=== PATIENT | male | born 1945 | race Caucasian/White ===

== ENCOUNTER 2016-03-11 14:59 | Inpatient (IN) | payer OTHER, MEDICARE ==
--- NOTE | 2016-03-11 15:15 | ER Document Report ---
ED Medical Screen (RME) - General Stated Complaint: RESPIRATORY DISTRESS Notes: 71 yo male c/o shortness of breath. brought to ED via EMS from [place] [facility]. feeling short of breath x 2 weeks. + sinus congestion. + fever. + cough. O2 Sat at clinic 88% hx/o COPD, HTN. denies chest pain - Related Data Allergies/Adverse Reactions: Sulfa (Sulfonamide Antibiotics) Allergy (Verified 12/12/12 22:44) Past Medical History - Past Medical History Cardiac Medical History: Reports: Hx Hypercholesterolemia, Hx Hypertension Pulmonary Medical History: Reports: Hx COPD Past Surgical History: Reports: Hx Cardiac Catheterization - stent placement - Immunizations Hx Diphtheria, Pertussis, Tetanus Vaccination: No
[2016-03-11 17:04] LABS: ABSOLUTE LYMPHOCYTES (AUTO) 0.6 10^3/uL (0.5-4.7); ABSOLUTE MONOCYTES (AUTO) 1.1 10^3/uL (0.1-1.4); ABSOLUTE NEUT (AUTO) 7.2 10^3/uL (1.7-8.2); BASOPHILS % (AUTO) 0.4 % (0-2); EOSINOPHILS % (AUTO) 0.4 % (0-6); HEMATOCRIT 34.9 % (37.9-51.0); HEMOGLOBIN 11.7 g/dL (13.5-17.0); HGB HCT DIFFERENCE 0.2; LYMPHOCYTES % (AUTO) 7.1 % (13-45); MEAN CORPUSCULAR HEMOGLOBIN 30.1 pg (27.0-33.4); MEAN CORPUSCULAR HGB CONC 33.6 g/dL (32.0-36.0); MEAN CORPUSCULAR VOLUME 89 fl (80-97); MONOCYTES % (AUTO) 12.4 % (3-13); RED CELL DISTRIBUTION WIDTH 13.9 % (11.5-14.0); SEGMENTED NEUTROPHILS % (AUTO) 79.7 % (42-78)
[2016-03-11 17:29] LABS: ALANINE AMINOTRANSFERASE 42 U/L (21-72); ALBUMIN 3.5 g/dL (3.5-5.0); ALKALINE PHOSPHATASE 75 U/L (38-126); ANION GAP 10 (5-19); ASPARTATE AMINO TRANSFERASE 34 U/L (17-59); BILIRUBIN,TOTAL 0.9 mg/dL (0.2-1.3); BLOOD UREA NITROGEN 18 mg/dL (7-20); CALCIUM 9.1 mg/dL (8.4-10.2); CARBON DIOXIDE 27 mmol/L (22-30); CHLORIDE 99 mmol/L (98-107); CREATININE RESULT 1.03 mg/dL (0.52-1.25); GLUCOSE 114 mg/dL (75-110); SODIUM 136.4 mmol/L (137-145); TOTAL PROTEIN 6.9 g/dL (6.3-8.2)
[2016-03-11] MEDS ORDERED: CEFTRIAXONE 1 GM/D5W RTU 50 ML IV ONE (18:36)
[2016-03-11] MEDS ORDERED: AZITHROMYCIN INJ 500 MG VIAL IV ONE (18:36)
[2016-03-11] MEDS ORDERED: METHYLPREDNISOLONE INJ 125 MG/2 ML SDV IV ONE (18:37)
[2016-03-11] MEDS ORDERED: IPRATROPIUM/ALBUTEROL 0.5-2.5 MG/3 ML AMPUL NEB ONE ×2 (18:37→21:00)
--- NOTE | 2016-03-11 18:42 | ER Document Report ---
ED Respiratory Problem - General Chief Complaint: Breathing Difficulty Stated Complaint: RESPIRATORY DISTRESS Time seen by provider: 18:37 Mode of Arrival: Medic Information source: Patient Notes: This is a 71-year-old man with a history of COPD who is brought in by EMS because of shortness of breath and hypoxia. Patient was being evaluated at the [facility] for shortness of breath and cough, he was noted to have O2 sat of 88% on room air and his skin looked "ashen". Patient states he's been having significant dyspnea on exertion in the setting of cough and chills for the past 3 days. TRAVEL OUTSIDE OF THE [place] IN LAST 30 DAYS: No - HPI Patient complains to provider of: COPD Onset: Last week Duration: Continuous Initiating Event: No: Allergy, Aspiration/Choking, Exertion, Exposure to chemicals, Exposure to dust, Exposure to fumes, Exposure to mold, Exposure to smoke, Out of meds, Sports/exercise, URI, Other Quality of pain: No pain Severity: None Pain Level: Denies Context: Hx COPD Short of Breath: Moderate Chest pain/discomfort: denies: Center, Constant, Heaviness, Intermittent, Left, Pain, Radiates to arm, Radiates to back, Radiates to jaw, Right, Tightness, Worse with deep breaths Cough: Productive Sputum amount: denies: None, Scant, Small, Moderate, Large, Copious Sputum color: denies: Brown, Clear, Creamy, [place], Green, [place] tinged, Red (blood ), Red Specks, Rust, Small Clots, Ram, White, Yellow Sputum consistency: denies: Frothy, Mucoid, Mucoid Plug, Tenacious, Thick, Thin At home treatment: denies: Bronchodilators, CPAP, Diuretics, Inhaled steroids, Oral steroids, Oxygen, Singulair, Theophylline EMS treatments: No: Bronchodilators, CPAP, Diuretics, Epinephrine, Nitrates, Oxygen, Solumedrol Associated symptoms: Chills, Short of breath Similar symptoms previously: Yes Recently seen / treated by doctor: Yes - Related Data Allergies/Adverse Reactions: Sulfa (Sulfonamide Antibiotics) Allergy (Verified 03/11/16 15:13) Past Medical History - General Information source: Patient - Social History Smoking Status: Former Smoker Cigarette use (# per day): No Chew tobacco use (# tins/day): No Frequency of alcohol use: None Drug Abuse: None Lives with: Spouse/Significant other Family History: Reviewed & Not Pertinent Patient has suicidal ideation: No Patient has homicidal ideation: No - Past Medical History Cardiac Medical History: Reports: Hx Hypercholesterolemia, Hx Hypertension Pulmonary Medical History: Reports: Hx COPD Renal/ Medical History: Denies: Hx Peritoneal Dialysis Past Surgical History: Reports: Hx Cardiac Catheterization - stent placement - Immunizations Hx Diphtheria, Pertussis, Tetanus Vaccination: No Review of Systems - Review of Systems Constitutional: Chills. denies: Fever EENT: See HPI Cardiovascular: No symptoms reported Respiratory: See HPI Gastrointestinal: No symptoms reported Genitourinary: No symptoms reported Male Genitourinary: No symptoms reported Musculoskeletal: No symptoms reported Skin: No symptoms reported Hematologic/Lymphatic: No symptoms reported Neurological/Psychological: No symptoms reported Physical Exam - Vital signs Vitals: Resp Pulse Ox 22 H 94 03/11/16 17:07 03/11/16 17:07 Notes: Physical exam: GENERAL: Of [id number] man, alert and oriented 3, appears short of breath HEAD: Atraumatic, normocephalic. EYES: Pupils equal round and reactive to light, extraocular movements intact, sclera anicteric, conjunctiva are normal. ENT: TMs normal, nares patent, oropharynx clear without exudates. Moist mucous membranes. NECK: Normal range of motion, supple without lymphadenopathy or JVD. LUNGS: A few's wheezing bilaterally HEART: Regular rate and rhythm without murmurs, rubs or gallops. ABDOMEN: Soft, nontender, normoactive bowel sounds. No guarding, no rebound. No masses appreciated. EXTREMITIES: Normal range of motion, no pitting or edema. No clubbing or cyanosis. NEUROLOGICAL: Cranial nerves II through XII grossly intact. Normal speech, normal gait. PSYCH: Normal mood, normal affect. SKIN: Warm, Dry, normal turgor, no rashes or lesions noted. Course - Re-evaluation Re-evalutation: 03/11/16 20:02 Note: This is a 71-year-old man with COPD who presents to the emergency room via EMS with progressively worsening shortness of breath. Patient was noted to be hypoxic in the physician's office. Patient does desaturate when off the oxygen (he is not on any supplemental oxygen at home). Chest x-ray is suggestive of pneumonia. Patient was treated with IV steroids, IV antibiotics, nebulizers. 03/11/16 20:03 - Vital Signs Vital signs: Temp Pulse Resp BP Pulse Ox 21 H 162/92 H 98 03/11/16 19:09 03/11/16 19:09 03/11/16 19:09 - Laboratory Result Diagrams: 03/11/16 16:46 03/11/16 16:46 Laboratory results interpreted by me: 03/11/16 03/11/16 16:46 16:46 RBC 3.90 L Hgb 11.7 L Hct 34.9 L Seg Neutrophils % 79.7 H Lymphocytes % 7.1 L Sodium 136.4 L Glucose 114 H - Diagnostic Test Radiology reviewed: Image reviewed, Reports reviewed - COPD with superimposed pneumonia - EKG Interpretation by Me Rate: Normal Rhythm: NSR - EKG shows normal sinus rhythm with a ventricular rate of 85, Q waves be to V3 which are old, no acute ST-T wave changes. No significant changes from previous EKG Discharge - Discharge Clinical Impression: COPD exacerbation, pneumonia Condition: Stable Disposition: ADMITTED INPATIENT Admitting Provider: Hospitalist - Dr. Perez Unit Admitted: Telemetry Referrals: [Primary Care Provider] - Follow up as needed
[2016-03-11] MEDS ORDERED: IPRATROPIUM/ALBUTEROL 0.5-2.5 MG/3 ML AMPUL NEB PRN (20:14)
[2016-03-11] MEDS ORDERED: GUAIFENESIN SYRP 200 MG/10 ML UDC PO PRN (20:14)
[2016-03-11] MEDS ORDERED: NITROGLYCERIN 0.4 MG/TAB 25 TAB/BOTTLE SL PRN (20:17)
[2016-03-11] MEDS ORDERED: OXYCODONE HCL IR 5 MG TABLET PO PRN (20:17)
[2016-03-11] MEDS ORDERED: LACTULOSE SYRUP 20 GM/30 ML UDCUP PO ONE (21:30)
[2016-03-11] MEDS ORDERED: MINERAL OIL ENEMA 133 ML PR PRN (21:56)
[2016-03-11] MEDS ORDERED: DOXAZOSIN MESYLATE 4 MG TABLET PO SCH (22:00)
[2016-03-11] MEDS ORDERED: (PENDING PHARMACY ID) (Terazosin Hcl [Hytrin] 4 MG) PO SCH (22:00)
[2016-03-11] MEDS ORDERED: MORPHINE SULFATE SR 15 MG TABLET PO SCH (22:00)
[2016-03-11] MEDS ORDERED: FLUTICASONE NASAL SPRAY 50 MCG/SPRY 120 SPRAY/16 GM NASL SCH (22:00)
[2016-03-11] MEDS ORDERED: (PENDING PHARMACY ID) (Rosuvastatin Calcium [Crestor 20 Mg Tablet] 20 MG) PO SCH (22:00)
[2016-03-11] MEDS: HEPARIN SOD (PORCINE) 5,000 UNIT/ML 1 ML SYRINGE SUBCUT SCH (22:44)
[2016-03-11] MEDS: GUAIFENESIN 600 MG TABLET.SA PO SCH (22:44)
[2016-03-11] MEDS: NORMAL SALINE 1000 ML 1,000 ML IV SCH (22:46)
[2016-03-11] MEDS: ATORVASTATIN CALCIUM 80 MG TABLET PO SCH (22:46)
--- NOTE | 2016-03-11 23:19 | PDOC H&P ---
History of Present Illness Admission Date/PCP: 03/11/16 20:14 Papiya Ray Patient complains of: Shortness of breath and cough History of Present Illness: JADEN PAIZ is a 71 year old male with a past medical history of coronary artery disease, COPD and chronic pain with opiate dependence who had been in his usual state of health until approximately 2 weeks ago having exceptional facial sinus congestion and postnasal drip and gradually worsening shortness of breath with nonproductive cough prompting him to seek evaluation with the [facility] where he is found to have pulse oximetry of 88% on room air and is referred to the emergency room for evaluation. A chest x-ray reveals right mid and lower lobe infiltrate. He denies chest pain though admits nausea without vomiting and abdominal distention with out bowel movements and greater than 5 days. He is given albuterol Atrovent nebulizer and empiric antibiotics referred to the hospitalist for admission. Past Medical History Cardiac Medical History: Reports: Coronary Artery Disease - stenting of the LAD rhythm 2 years ago, f/u cardiac stress testing neg., Hyperlipidema, Hypertension Pulmonary Medical History: Reports: Chronic Obstructive Pulmonary Disease (COPD) GI Medical History: Reports: Other - Chronic constipation Musculoskeltal Medical History: Reports: Other - Chronic low back pain Past Surgical History Past Surgical History: Reports: Cardiac Catheterization - stent placement Social History Information Source: Patient Lives with: Spouse/Significant other Smoking Status: Former Smoker Frequency of Alcohol Use: Rare Hx Recreational Drug Use: No Drugs: None - Advance Directive Resuscitation Status: Full Code Family History Family History: COPD Parental Family History Reviewed: Yes Children Family History Reviewed: Yes Sibling(s) Family History Reviewed.: Yes Medication/Allergy Home Medications: Albuterol Sulfate [Proair HFA] 2 puff IH Q6HP PRN 03/11/16 Budesonide/Formoterol Fumarate [Symbicort HFA 80-4.5 mcg Inhaler 6.9 gm] 2 puff IH Q12 03/11/16 Cetirizine HCl [Zyrtec 10 mg Tablet] 10 mg PO DAILY 03/11/16 Clopidogrel Bisulfate [Plavix 75 mg Tablet] 75 mg PO DAILY 03/11/16 Finasteride [Proscar 5 mg Tablet] 5 mg PO QHS 03/11/16 Fluticasone Propionate [Flonase Nasal [place] 50 Mcg/[place] 16 gm] 2 sprays NASL DAILY 03/11/16 Pantoprazole Sodium [Protonix] 40 mg PO DAILY 03/11/16 Polyethylene Glycol 3350 [Miralax] 1 cfu PO DAILY 03/11/16 Terazosin HCl [Hytrin] 4 mg PO QHS 03/11/16 Allergies/Adverse Reactions: Sulfa (Sulfonamide Antibiotics) Allergy (Verified 03/11/16 15:13) Review of Systems Constitutional: PRESENT: anorexia, chills, fatigue Eyes: ABSENT: visual disturbances Ears: ABSENT: hearing changes Cardiovascular: PRESENT: dyspnea on exertion. ABSENT: chest pain, edema, orthropnea, palpitations Respiratory: PRESENT: cough, dyspnea. ABSENT: sputum Gastrointestinal: PRESENT: bloating, constipation, nausea. ABSENT: coffee ground emesis, diarrhea, vomiting Genitourinary: ABSENT: dysuria, hematuria Musculoskeletal: PRESENT: back pain Integumentary: ABSENT: rash, wounds Neurological: ABSENT: abnormal gait, abnormal speech, confusion, dizziness, focal weakness, syncope Psychiatric: ABSENT: anxiety, depression, homidical ideation, suicidal ideation Endocrine: ABSENT: cold intolerance, heat intolerance, polydipsia, polyuria Hematologic/Lymphatic: ABSENT: easy bleeding, easy bruising Physical Exam Vital Signs: Temp Pulse Resp BP Pulse Ox 97.2 F 84 19 176/78 H 97 03/11/16 22:00 03/11/16 22:00 03/11/16 22:00 03/11/16 22:00 03/11/16 22:00 General appearance: PRESENT: cooperative, mild distress, well-developed, well- nourished Head exam: PRESENT: atraumatic, normocephalic Eye exam: PRESENT: conjunctiva pink, EOMI, PERRLA. ABSENT: scleral icterus Ear exam: PRESENT: normal external ear exam Mouth exam: PRESENT: moist, tongue midline Neck exam: ABSENT: carotid bruit, JVD, lymphadenopathy, thyromegaly Respiratory exam: PRESENT: accessory muscle use, prolonged expiratory phas, rales, rhonchi, symmetrical, tachypnea. ABSENT: chest wall tenderness, clear to auscultation nicko, stridor, wheezes Cardiovascular exam: PRESENT: RRR. ABSENT: diastolic murmur, rubs, systolic murmur Pulses: PRESENT: normal dorsalis pedis pul Vascular exam: PRESENT: normal capillary refill GI/Abdominal exam: PRESENT: distended, hypoactive bowel sounds, soft. ABSENT: guarding, mass, Brito's sign, normal bowel sounds, organolmegaly, rebound, tenderness Rectal exam: PRESENT: deferred Extremities exam: PRESENT: full ROM. ABSENT: calf tenderness, clubbing, pedal edema Neurological exam: PRESENT: alert, awake, oriented to person, oriented to place , oriented to time, oriented to situation, CN II-XII grossly intact. ABSENT: motor sensory deficit Psychiatric exam: PRESENT: appropriate affect, normal mood. ABSENT: homicidal ideation, suicidal ideation Skin exam: PRESENT: dry, intact, warm. ABSENT: cyanosis, rash Results Impressions: Chest X-Ray 03/11/16 15:15 IMPRESSION: Suspect either asymmetric edema or early or developing pneumonia in the right mid and lower lung, superimposed on obstructive lung disease and old posttraumatic change left hemithorax Assessment & Plan - Diagnosis (1) COPD with exacerbation Is this a current diagnosis for this admission?: YesPlan: Albuterol and Atrovent nebulizer, flutter valve and will consider steroids (2) Pneumonia Is this a current diagnosis for this admission?: YesPlan: Likely aspiration from bacterial sinusitis, IV Levaquin incentive spirometry supplemental oxygen blood and sputum culture following up CBC (3) Maxillary sinusitis, acute Is this a current diagnosis for this admission?: YesPlan: Please see #2 and Flovent (4) Constipation Is this a current diagnosis for this admission?: YesPlan: Secondary to narcotic dependence he is placed on lactulose and mineral oil enema when necessary - Time Time Spent: 50 to 70 Minutes
[2016-03-12] MEDS ORDERED: OXYCODONE HCL IR 5 MG TABLET PO PRN (00:19)
[2016-03-12] MEDS ORDERED: MORPHINE SULFATE IR 15 MG TABLET PO ONE (00:30)
[2016-03-12] MEDS: IPRATROPIUM/ALBUTEROL 0.5-2.5 MG/3 ML AMPUL NEB SCH ×4 (01:24→19:48)
[2016-03-12] MEDS: NORMAL SALINE 1000 ML 1,000 ML IV SCH (04:41)
[2016-03-12 05:05] LABS: ABSOLUTE LYMPHOCYTES (AUTO) 0.4 10^3/uL (0.5-4.7); ABSOLUTE MONOCYTES (AUTO) 0.1 10^3/uL (0.1-1.4); ABSOLUTE NEUT (AUTO) 5.3 10^3/uL (1.7-8.2); BASOPHILS % (AUTO) 0.2 % (0-2); HEMATOCRIT 31.6 % (37.9-51.0); HEMOGLOBIN 10.8 g/dL (13.5-17.0); HGB HCT DIFFERENCE 0.8; LYMPHOCYTES % (AUTO) 6.5 % (13-45); MEAN CORPUSCULAR HEMOGLOBIN 30.3 pg (27.0-33.4); MEAN CORPUSCULAR HGB CONC 34.2 g/dL (32.0-36.0); MEAN CORPUSCULAR VOLUME 89 fl (80-97); RED BLOOD COUNT 3.57 10^6/uL (4.35-5.55); RED CELL DISTRIBUTION WIDTH 14.1 % (11.5-14.0); SEGMENTED NEUTROPHILS % (AUTO) 91.3 % (42-78); WHITE BLOOD COUNT 5.8 10^3/uL (4.0-10.5)
[2016-03-12 05:18] LABS: ANION GAP 13 (5-19); BLOOD UREA NITROGEN 18 mg/dL (7-20); CARBON DIOXIDE 22 mmol/L (22-30); CHLORIDE 104 mmol/L (98-107); CREATININE RESULT 0.84 mg/dL (0.52-1.25); GLUCOSE 173 mg/dL (75-110); POTASSIUM 4.5 mmol/L (3.6-5.0); SODIUM 139.1 mmol/L (137-145)
[2016-03-12] MEDS: HEPARIN SOD (PORCINE) 5,000 UNIT/ML 1 ML SYRINGE SUBCUT SCH ×3 (05:19→21:20)
[2016-03-12] MEDS ORDERED: NA PHOS,M-B/NA PHOS,DI-BA (ADULT) 133 ML ENEMA PR ONE (05:43)
[2016-03-12] MEDS ORDERED: MINERAL OIL ENEMA 133 ML PR ONE (05:43)
[2016-03-12] MEDS ORDERED: SERTRALINE HCL 50 MG TABLET PO SCH (10:00)
[2016-03-12] MEDS ORDERED: MORPHINE SULFATE IR 15 MG TABLET PO SCH ×2 (10:00→18:00)
[2016-03-12] MEDS: GUAIFENESIN 600 MG TABLET.SA PO SCH ×2 (10:56→21:22)
[2016-03-12] MEDS: MORPHINE SULFATE SR 15 MG TABLET PO SCH ×2 (10:56→21:23)
[2016-03-12] MEDS: LEVOFLOXACIN 750 MG/D5W RTU 150 ML IV SCH (10:57)
[2016-03-12] MEDS: LANSOPRAZOLE 30 MG TAB.RAP.DR PO SCH (10:57)
--- NOTE | 2016-03-12 11:22 | EKG REPORT ---
SEVERITY:- ABNORMAL ECG - PACEMAKER SPIKES OR ARTIFACTS SINUS RHYTHM BORDERLINE R WAVE PROGRESSION, ANTERIOR LEADS : Confirmed by: Stephanie Rodriguez 12-Mar-2016 11:22:00
[2016-03-12] MEDS ORDERED: BUDESONIDE/FORMOTEROL 80-4.5 MCG 60 PUFF/6.9 GM MDI IH ONE (12:00)
[2016-03-12] MEDS ORDERED: FLUTICASONE NASAL SPRAY 50 MCG/SPRY 120 SPRAY/16 GM NASL SCH (12:00)
--- NOTE | 2016-03-12 13:09 | PDOC PROGRESS REPORT ---
Subjective Progress Note for:: 03/12/16 Subjective:: Patient seen on morning rounds. He is sitting on the side of the bed. His is at bedside. He states he is hungry. His cough is beginning to loosen up. He denies dyspnea, chest pain or dizziness. He denies any abdominal pain ,nausea or diarrhea. He is still constipated. He states his bowels moved a very little bit after lactulose. He states both of his eyes this morning were matted shut and red. He states he has had a sinus infection for almost a week before it moved into his chest. He also has significant seasonal allergies. Rest of review are unremarkable. Physical Exam Vital Signs: Temp Pulse Resp BP Pulse Ox 97.4 F 83 20 162/81 H 95 03/12/16 11:57 03/12/16 11:57 03/12/16 11:57 03/12/16 11:57 03/12/16 11:57 Intake & Output 03/11/16 03/12/16 03/13/16 06:59 06:59 06:59 Intake Total 1907 Output Total 1125 Balance 782 Weight 78 kg General appearance: PRESENT: no acute distress, well-developed, well-nourished Head exam: PRESENT: atraumatic, normocephalic Eye exam: PRESENT: conjunctiva pink, EOMI, PERRLA. ABSENT: scleral icterus Ear exam: PRESENT: normal external ear exam Mouth exam: PRESENT: moist, tongue midline Neck exam: ABSENT: carotid bruit, JVD, lymphadenopathy, thyromegaly Respiratory exam: PRESENT: decreased breath sounds, rhonchi, symmetrical, unlabored. ABSENT: rales, wheezes Cardiovascular exam: PRESENT: RRR. ABSENT: diastolic murmur, rubs, systolic murmur Pulses: PRESENT: normal dorsalis pedis pul Vascular exam: PRESENT: normal capillary refill GI/Abdominal exam: PRESENT: firm, normal bowel sounds, soft. ABSENT: distended , guarding, mass, organolmegaly, rebound, tenderness Rectal exam: PRESENT: deferred Extremities exam: PRESENT: full ROM. ABSENT: calf tenderness, clubbing, pedal edema Neurological exam: PRESENT: alert, awake, oriented to person, oriented to place , oriented to time, oriented to situation, CN II-XII grossly intact. ABSENT: motor sensory deficit Psychiatric exam: PRESENT: appropriate affect, normal mood. ABSENT: homicidal ideation, suicidal ideation Skin exam: PRESENT: dry, intact, warm. ABSENT: cyanosis, rash Results Laboratory Results: 03/12/16 04:20 03/12/16 04:20 03/12/16 03/12/16 04:20 04:20 WBC 5.8 RBC 3.57 L Hgb 10.8 L Hct 31.6 L MCV 89 MCH 30.3 MCHC 34.2 RDW 14.1 H Plt Count 177 Seg Neutrophils % 91.3 H Lymphocytes % 6.5 L Monocytes % 2.0 L Eosinophils % 0.0 Basophils % 0.2 Absolute Neutrophils 5.3 Absolute Lymphocytes 0.4 L Absolute Monocytes 0.1 Absolute Eosinophils 0.0 Absolute Basophils 0.0 Sodium 139.1 Potassium 4.5 Chloride 104 Carbon Dioxide 22 Anion Gap 13 BUN 18 Creatinine 0.84 Est GFR ( Amer) > 60 Est GFR (Non-Af Amer) > 60 Glucose 173 H Calcium 9.0 Impressions: Chest X-Ray 03/11/16 15:15 IMPRESSION: Suspect either asymmetric edema or early or developing pneumonia in the right mid and lower lung, superimposed on obstructive lung disease and old posttraumatic change left hemithorax Assessment & Plan - Diagnosis (1) Pneumonia Qualifiers: Qualified Code(s): J18.1 - Lobar pneumonia, unspecified organism Is this a current diagnosis for this admission?: YesPlan: Continue current antibiotics, IV steroids and nebulizer treatment. Sputum culture pending (2) COPD with exacerbation Is this a current diagnosis for this admission?: YesPlan: Continue inhalers, nebulizer, and steroids (3) Maxillary sinusitis, acute Qualifiers: Qualified Code(s): J01.01 - Acute recurrent maxillary sinusitis Is this a current diagnosis for this admission?: YesPlan: Patient has recurrent sinusitis, also has seasonal allergies. Will add Singulair. Continue Flonase and Zyrtec. (4) Chronic pain requiring opiod analgesia Is this a current diagnosis for this admission?: YesPlan: Will continue patient's current home medications - Time Time Spent with patient: 25-34 minutes Critical Time spent with patient: 15-24 minutes Medications reviewed and adjusted accordingly: Yes Anticipated discharge: Home - Inpatient Certification Based on my medical assessment, after consideration of the patient's comorbidities, presenting symptoms, or acuity I expect that the services needed warrant INPATIENT care.: Yes I certify that my determination is in accordance with my understanding of Medicare's requirements for reasonable and necessary INPATIENT services [42 CFR 412.3e].: Yes
[2016-03-12] MEDS: METHYLPREDNISOLONE INJ 40 MG/1 ML SDV IV SCH ×2 (14:20→21:23)
[2016-03-12] MEDS ORDERED: LUBIPROSTONE 24 MCG CAPSULE PO ONE ×2 (15:45→16:30)
[2016-03-12] MEDS: CIPROFLOXACIN HCL 0.3% OPH SOLN 2.5 ML OU SCH ×2 (17:28→23:22)
[2016-03-12] MEDS: OXYCODONE HCL IR 5 MG TABLET PO PRN (19:53)
[2016-03-12] MEDS: BUDESONIDE/FORMOTEROL 80-4.5 MCG 60 PUFF/6.9 GM MDI IH SCH (21:20)
[2016-03-12] MEDS: LUBIPROSTONE 24 MCG CAPSULE PO SCH (21:24)
[2016-03-12] MEDS: ATORVASTATIN CALCIUM 80 MG TABLET PO SCH (21:26)
[2016-03-12] MEDS ORDERED: (PENDING PHARMACY ID) (Terazosin Hcl [Hytrin] 4 MG) PO SCH (22:00)
[2016-03-12] MEDS ORDERED: DOXAZOSIN MESYLATE 4 MG TABLET PO SCH (22:00)
[2016-03-12] MEDS ORDERED: MONTELUKAST SODIUM 10 MG TABLET PO SCH (22:00)
[2016-03-12] MEDS ORDERED: DIAZEPAM 5 MG TABLET PO SCH (22:00)
[2016-03-12] MEDS ORDERED: FINASTERIDE 5 MG TABLET PO SCH (22:00)
[2016-03-12] MEDS: ACETAMINOPHEN 325 MG TABLET PO PRN (23:21)
[2016-03-13] MEDS: OXYCODONE HCL IR 5 MG TABLET PO PRN (02:02)
[2016-03-13] MEDS: ACETAMINOPHEN 325 MG TABLET PO PRN (03:40)
[2016-03-13] MEDS: IPRATROPIUM/ALBUTEROL 0.5-2.5 MG/3 ML AMPUL NEB SCH ×2 (03:47→08:25)
[2016-03-13] MEDS: HEPARIN SOD (PORCINE) 5,000 UNIT/ML 1 ML SYRINGE SUBCUT SCH (06:19)
[2016-03-13] MEDS: METHYLPREDNISOLONE INJ 40 MG/1 ML SDV IV SCH (06:20)
[2016-03-13] MEDS: CIPROFLOXACIN HCL 0.3% OPH SOLN 2.5 ML OU SCH (06:20)
[2016-03-13 06:39] LABS: ABSOLUTE LYMPHOCYTES (AUTO) 0.6 10^3/uL (0.5-4.7); ABSOLUTE MONOCYTES (AUTO) 0.6 10^3/uL (0.1-1.4); ABSOLUTE NEUT (AUTO) 9.4 10^3/uL (1.7-8.2); BASOPHILS % (AUTO) 0.3 % (0-2); HEMATOCRIT 32.9 % (37.9-51.0); HEMOGLOBIN 11.1 g/dL (13.5-17.0); HGB HCT DIFFERENCE 0.4; LYMPHOCYTES % (AUTO) 5.6 % (13-45); MEAN CORPUSCULAR HEMOGLOBIN 30.2 pg (27.0-33.4); MEAN CORPUSCULAR HGB CONC 33.9 g/dL (32.0-36.0); MEAN CORPUSCULAR VOLUME 89 fl (80-97); MONOCYTES % (AUTO) 5.9 % (3-13); RED BLOOD COUNT 3.69 10^6/uL (4.35-5.55); RED CELL DISTRIBUTION WIDTH 13.9 % (11.5-14.0); SEGMENTED NEUTROPHILS % (AUTO) 88.2 % (42-78); WHITE BLOOD COUNT 10.7 10^3/uL (4.0-10.5)
[2016-03-13 06:59] LABS: ANION GAP 13 (5-19); BLOOD UREA NITROGEN 33 mg/dL (7-20); CALCIUM 9.6 mg/dL (8.4-10.2); CARBON DIOXIDE 25 mmol/L (22-30); CHLORIDE 104 mmol/L (98-107); CREATININE RESULT 1.01 mg/dL (0.52-1.25); GLUCOSE 132 mg/dL (75-110); POTASSIUM 4.6 mmol/L (3.6-5.0); SODIUM 142.2 mmol/L (137-145)
[2016-03-13] MEDS ORDERED: CETIRIZINE 10 MG TABLET PO SCH (10:00)
[2016-03-13] MEDS ORDERED: [UNRECOGNIZED DRUG - OTHER] PO SCH (10:00)
[2016-03-13] MEDS ORDERED: CLOPIDOGREL BISULFATE 75 MG TABLET PO SCH (10:00)
[2016-03-13] MEDS ORDERED: POLYETHYLENE GLYCOL 3350 POWDER 17 GM/1 PACKET PO SCH (10:00)
[2016-03-13] MEDS: BUDESONIDE/FORMOTEROL 80-4.5 MCG 60 PUFF/6.9 GM MDI IH SCH (10:14)
[2016-03-13] MEDS: LANSOPRAZOLE 30 MG TAB.RAP.DR PO SCH (10:14)
[2016-03-13] MEDS: GUAIFENESIN 600 MG TABLET.SA PO SCH (10:14)
[2016-03-13] MEDS: MORPHINE SULFATE SR 15 MG TABLET PO SCH (10:15)
[2016-03-13] MEDS: LEVOFLOXACIN 750 MG/D5W RTU 150 ML IV SCH (10:15)
[2016-03-13] MEDS: LUBIPROSTONE 24 MCG CAPSULE PO SCH (10:16)
[2016-03-13 13:07] VITALS: BP 150/62
--- NOTE | 2016-03-13 15:30 | PDOC DISCHARGE SUMMARY ---
General - Admit/Disc Date/PCP Admission Date/Primary Care Provider: 03/11/16 20:14 Papiya Ray Discharge Date: 03/13/16 - Discharge Diagnosis (1) Pneumonia Is this a current diagnosis for this admission?: YesSummary: Patient with right lower lobe community aquired pneumonia (2) COPD with exacerbation Is this a current diagnosis for this admission?: Yes (3) Maxillary sinusitis, acute Is this a current diagnosis for this admission?: Yes (4) Chronic pain requiring opiod analgesia Is this a current diagnosis for this admission?: Yes (5) Constipation Is this a current diagnosis for this admission?: YesSummary: Patient with opioid induced constipation. He did have a very large bowel movement after Amitizia and Fleets enema - Additional Information Resuscitation Status: Full Code Discharge Diet: Regular Discharge Activity: Activity As Tolerated, Balance Activity w/Rest Home Medications: Albuterol Sulfate [Proair HFA] 2 puff IH Q6HP PRN 03/11/16 Budesonide/Formoterol Fumarate [Symbicort HFA 80-4.5 mcg Inhaler 6.9 gm] 2 puff IH Q12 03/11/16 Cetirizine HCl [Zyrtec 10 mg Tablet] 10 mg PO DAILY 03/11/16 Clopidogrel Bisulfate [Plavix 75 mg Tablet] 75 mg PO DAILY 03/11/16 Finasteride [Proscar 5 mg Tablet] 5 mg PO QHS 03/11/16 Fluticasone Propionate [Flonase Nasal [place] 50 Mcg/[place] 16 gm] 2 sprays NASL DAILY 03/11/16 Morphine Sulfate 15 mg PO BID 03/11/16 Oxycodone HCl [Oxy-Ir 5 mg Tablet] 5 mg PO Q6HP PRN 03/11/16 Pantoprazole Sodium [Protonix] 40 mg PO DAILY 03/11/16 Polyethylene Glycol 3350 [Miralax] 1 cfu PO DAILY 03/11/16 Terazosin HCl [Hytrin] 4 mg PO QHS 03/11/16 Acetaminophen [Tylenol 325 mg Tablet] 650 mg PO Q4HP PRN tablet 03/13/16 Ciprofloxacin HCl [Ciloxan 0.3% Oph Soln 2.5 ml] 1 drop OU Q6 bottle 03/13/16 Levofloxacin [Levaquin 750 mg Tablet] 750 mg PO DAILY #7 tablet 03/13/16 Montelukast Sodium [Singulair 10 mg Tablet] 10 mg PO QHS #30 tablet 03/13/16 Morphine Sulfate [Ms-Contin Sr 15 mg Tablet] 15 mg PO Q12 tablet.sa 03/13/16 Prednisone [Deltasone 20 mg Tablet] 20 mg PO BID #10 tablet 03/13/16 History of Present Illness Patient complains of: Cough, wheezing and shortness of breath History of Present Illness: JADEN PAIZ is a 71 year old male with history of COPD, not on home oxygen with worsening cough, shortness of breath and wheezing who presented to ED on 03/11/2016. He was found to be mildly hypoxemic and chest xray shows a right lower lobe pneumonia. He was pancultured and started on IV antibiotics and steroids. He was given nebulizer treatments and oxygen which improved his symptoms. He was referred to the hospitalist service for admission. Hospital Course Hospital Course: Patient was admitted to the telemetry floor on telemetry. He was continued on IV antibiotics, steroids and nebulizer treatments. He was noted to have significant constipation on exam and xray. He was given oral lactulose and enema with minimal results. He was given amitizia and another fleets enema with large results. His breathing improved over the next 48 hrs. He was able to be weaned from oxygen. Today he feels well and would like to be discharged on oral antibiotics and steroids. Physical Exam Vital Signs: Temp Pulse Resp BP Pulse Ox 97.5 F 89 20 150/62 H 94 03/13/16 13:04 03/13/16 13:04 03/13/16 13:04 03/13/16 13:04 03/13/16 13:04 Intake & Output 03/12/16 03/13/16 03/14/16 06:59 06:59 06:59 Intake Total 1907 1843 Output Total 1125 800 Balance 782 1043 Weight 78 kg 77.8 kg General appearance: PRESENT: no acute distress, thin, well-developed, well- nourished Head exam: PRESENT: atraumatic, normocephalic Eye exam: PRESENT: conjunctiva pink, EOMI, PERRLA. ABSENT: scleral icterus Ear exam: PRESENT: normal external ear exam Mouth exam: PRESENT: moist, tongue midline Neck exam: ABSENT: carotid bruit, JVD, lymphadenopathy, thyromegaly Respiratory exam: PRESENT: crackles, symmetrical, unlabored - right base Cardiovascular exam: PRESENT: RRR. ABSENT: diastolic murmur, rubs, systolic murmur Pulses: PRESENT: normal dorsalis pedis pul Vascular exam: PRESENT: normal capillary refill GI/Abdominal exam: PRESENT: normal bowel sounds, soft. ABSENT: distended, guarding, mass, organolmegaly, rebound, tenderness Rectal exam: PRESENT: deferred Extremities exam: PRESENT: full ROM. ABSENT: calf tenderness, clubbing, pedal edema Neurological exam: PRESENT: alert, awake, oriented to person, oriented to place , oriented to time, oriented to situation, CN II-XII grossly intact. ABSENT: motor sensory deficit Psychiatric exam: PRESENT: appropriate affect, normal mood. ABSENT: homicidal ideation, suicidal ideation Skin exam: PRESENT: dry, intact, warm. ABSENT: cyanosis, rash Results Laboratory Results: 03/13/16 05:35 03/13/16 05:35 03/13/16 03/13/16 05:35 05:35 WBC 10.7 H RBC 3.69 L Hgb 11.1 L Hct 32.9 L MCV 89 MCH 30.2 MCHC 33.9 RDW 13.9 Plt Count 226 Seg Neutrophils % 88.2 H Lymphocytes % 5.6 L Monocytes % 5.9 Eosinophils % 0.0 Basophils % 0.3 Absolute Neutrophils 9.4 H Absolute Lymphocytes 0.6 Absolute Monocytes 0.6 Absolute Eosinophils 0.0 Absolute Basophils 0.0 Sodium 142.2 Potassium 4.6 Chloride 104 Carbon Dioxide 25 Anion Gap 13 BUN 33 H Creatinine 1.01 Est GFR ( Amer) > 60 Est GFR (Non-Af Amer) > 60 Glucose 132 H Calcium 9.6 Impressions: Chest X-Ray 03/11/16 15:15 IMPRESSION: Suspect either asymmetric edema or early or developing pneumonia in the right mid and lower lung, superimposed on obstructive lung disease and old posttraumatic change left hemithorax Qualifiers [facility] BEING DISCHARGED WITH ANY OF THE FOLLOWING DIAGNOSIS?: No Plan Discharge Plan: Home with . Follow up with relocation specialist in one week Time Spent: Less than 30 Minutes
[2016-03-13] MEDS ORDERED: METHYLPREDNISOLONE INJ 40 MG/1 ML SDV IV SCH (22:00)
[2016-03-14] MEDS ORDERED: LEVOFLOXACIN 750 MG TABLET PO SCH (10:00)
== END 2016-03-13 13:00 | disposition home or self-care (01) | DRG 194 ==
LOC: ER 14:59 → UNDOADMIN 20:09 → EH 20:09 → 4N 22:05
PROVIDERS: ADMIT Internal Medicine; ATTEND Internal Medicine
DX: J18.9 Pneumonia, unspecified organism (principal); J44.1 Chronic obstructive pulmonary disease with (acute) exacerbation; F11.20 Opioid dependence, uncomplicated; J01.00 Acute maxillary sinusitis, unspecified; R09.02 Hypoxemia; I25.10 Atherosclerotic heart disease of native coronary artery without angina pectoris; G89.29 Other chronic pain; K59.09 Other constipation; E78.5 Hyperlipidemia, unspecified; I10 Essential (primary) hypertension; M54.5 Low back pain; Z95.5 Presence of coronary angioplasty implant and graft; Z82.5 Family history of asthma and other chronic lower respiratory diseases; Z88.2 Allergy status to sulfonamides; Z87.891 Personal history of nicotine dependence
CPT/HCPCS: 36415; 71020; 80048; 80053; 83880; 85025; 87070; 87205; 93005; 93010; 94667; 94668; 94799; G8978-GP; G8979-GP; J0456; J0696; J1644; J1956; J2920; J2930; J3490; J7030; J7620

== ENCOUNTER 2016-04-06 16:11 | Emergency (ER) | payer MEDICARE, OTHER ==
--- NOTE | 2016-04-06 17:18 | ER Document Report ---
ED Medical Screen (RME) - General Stated Complaint: BLOOD PRESSURE ISSUE Mode of Arrival: Ambulatory Information source: Patient Notes: 71 y/o M presents to ED referred by pcp for elevated BP. States has noted BP to be in systolic 220's . Takes Metoprolol once a day. Denies symptoms. BP now 134/ 58. I have greeted and performed a rapid initial assessment of this patient. A comprehensive ED assessment and evaluation of the patient, analysis of test results and completion of the medical decision making process will be conducted by additional ED providers. TRAVEL OUTSIDE OF THE [place] IN LAST 30 DAYS: No - Related Data Allergies/Adverse Reactions: Sulfa (Sulfonamide Antibiotics) Allergy (Verified 04/06/16 16:54) Past Medical History - Social History Chew tobacco use (# tins/day): No Frequency of alcohol use: None Drug Abuse: None - Past Medical History Cardiac Medical History: Reports: Hx Coronary Artery Disease - stenting of the LAD rhythm 2 years ago, f/u cardiac stress testing neg., Hx Hypercholesterolemia , Hx Hypertension Pulmonary Medical History: Reports: Hx COPD Renal/ Medical History: Denies: Hx Peritoneal Dialysis Past Surgical History: Reports: Hx Cardiac Catheterization - stent placement - Immunizations Hx Diphtheria, Pertussis, Tetanus Vaccination: No Physical Exam - Vital signs Vitals: Temp Pulse Resp BP Pulse Ox 97.9 F 70 16 134/58 H 95 04/06/16 16:46 04/06/16 16:46 04/06/16 16:46 04/06/16 16:46 04/06/16 16:46 - General General appearance: Appears well, Alert In distress: None - Respiratory Respiratory status: No respiratory distress Course - Vital Signs Vital signs: Temp Pulse Resp BP Pulse Ox 97.9 F 70 16 134/58 H 95 04/06/16 16:46 04/06/16 16:46 04/06/16 16:46 04/06/16 16:46 04/06/16 16:46
[2016-04-06 18:30] VITALS: BP 144/75
== END 2016-04-06 18:50 | disposition left against medical advice (07) ==
LOC: ER 16:11
DX: Z53.9 Procedure and treatment not carried out, unspecified reason (principal); R03.0 Elevated blood-pressure reading, without diagnosis of hypertension
CPT/HCPCS: 99281

== ENCOUNTER 2016-06-23 11:42 | Inpatient (IN) | payer OTHER, MEDICARE ==
[2016-06-17] MEDS: MORPHINE SULFATE SR 15 MG TABLET PO SCH (10:00)
--- NOTE | 2016-06-23 11:47 | ER Document Report ---
ED General - General Stated Complaint: RESPIRATORY DISTRESS Time Seen by Provider: 06/23/16 11:46 Mode of Arrival: Ambulatory Information source: Patient Notes: 71-year-old male history of COPD presents with productive cough shortness of breath. Patient denies any fevers chills nausea vomiting or diarrhea TRAVEL OUTSIDE OF THE [place] IN LAST 30 DAYS: No - HPI Onset: Just prior to arrival Onset/Duration: Sudden Severity: Mild Pain Level: Denies Associated symptoms: Productive cough, Shortness of breath Exacerbated by: Denies Relieved by: Denies Similar symptoms previously: Yes Recently seen / treated by doctor: Yes - Related Data Allergies/Adverse Reactions: Sulfa (Sulfonamide Antibiotics) Allergy (Verified 04/06/16 16:54) Past Medical History - Social History Smoking Status: Never Smoker Cigarette use (# per day): No Chew tobacco use (# tins/day): No Smoking Education Provided: No Family History: COPD - Past Medical History Cardiac Medical History: Reports: Hx Coronary Artery Disease - stenting of the LAD rhythm 2 years ago, f/u cardiac stress testing neg., Hx Hypercholesterolemia , Hx Hypertension Pulmonary Medical History: Reports: Hx COPD Renal/ Medical History: Denies: Hx Peritoneal Dialysis Past Surgical History: Reports: Hx Cardiac Catheterization - stent placement - Immunizations Hx Diphtheria, Pertussis, Tetanus Vaccination: No Review of Systems - Review of Systems Notes: PHYSICAL EXAMINATION: GENERAL: Well-appearing, well-nourished and in no acute distress. HEAD: Atraumatic, normocephalic. EYES: Pupils equal round and reactive to light, extraocular movements intact, sclera anicteric, conjunctiva are normal. ENT: Nares patent, oropharynx clear without exudates. Moist mucous membranes. NECK: Normal range of motion, supple without lymphadenopathy LUNGS: Rhonchi at bases HEART: Regular rate and rhythm without murmurs ABDOMEN: Soft, nontender, nondistended abdomen. No guarding, no rebound. No masses appreciated. Musculoskeletal: Normal range of motion, no pitting or edema. No cyanosis. NEUROLOGICAL: Cranial nerves grossly intact. Normal speech, normal gait. Normal sensory, motor exams PSYCH: Normal mood, normal affect. SKIN: Warm, Dry, normal turgor, no rashes or lesions noted. Physical Exam - Vital signs Vitals: Pulse Ox 89 L 06/23/16 11:47 Course - Re-evaluation Re-evalutation: 06/23/16 12:02 Physical examination notes no significant abnormality, patient was noted to have a history distress initially by EMS and was mildly hypoxic however after breathing treatment he notes he is breathing better Dyspnea workup performed 06/23/16 14:01 pt ambulated sating 87% on 4 L nc keny ladmit to the hospitalist 06/23/16 14:03 - Vital Signs Vital signs: Temp Pulse Resp BP Pulse Ox 98.2 F 99 21 H 128/58 H 92 06/23/16 11:49 06/23/16 11:49 06/23/16 12:10 06/23/16 12:10 06/23/16 12:10 - Laboratory Result Diagrams: 06/23/16 12:10 06/23/16 12:10 Laboratory results interpreted by me: 06/23/16 06/23/16 06/23/16 12:10 12:10 12:10 WBC 13.7 H RBC 3.79 L Hgb 11.2 L Hct 34.6 L RDW 14.4 H Seg Neuts % (Manual) 91 H Band Neutrophils % 2 L Lymphocytes % (Manual) 3 L Abs Neuts (Manual) 12.7 H Abs Lymphs (Manual) 0.4 L Sodium 134.7 L BUN 30 H Creatinine 1.50 H Est GFR ( Amer) 56 L Est GFR (Non-Af Amer) 46 L Glucose 161 H Total Bilirubin 1.4 H Direct Bilirubin 0.6 H NT-Pro-B Natriuret Pep 2260 H Critical Care Note - Critical Care Note Total time excluding time spent on procedures (mins): 44 Comments: 44 minutes of critical care time spent in direct contact evaluating and reevaluating the patient, treating symptoms, reviewing labs and studies and speaking with family and consultants excluding any procedures Discharge - Discharge Clinical Impression: COPD with exacerbation, Hypoxemia Condition: Stable Disposition: ADMITTED INPATIENT Admitting Provider: Hospitalist Unit Admitted: Telemetry
[2016-06-23 12:35] LABS: HEMATOCRIT 34.6 % (37.9-51.0); HEMOGLOBIN 11.2 g/dL (13.5-17.0); MEAN CORPUSCULAR HEMOGLOBIN 29.6 pg (27.0-33.4); MEAN CORPUSCULAR HGB CONC 32.4 g/dL (32.0-36.0); MEAN CORPUSCULAR VOLUME 91 fl (80-97); RED BLOOD COUNT 3.79 10^6/uL (4.35-5.55); RED CELL DISTRIBUTION WIDTH 14.4 % (11.5-14.0); WHITE BLOOD COUNT 13.7 10^3/uL (4.0-10.5)
[2016-06-23 12:40] LABS: ALANINE AMINOTRANSFERASE 28 U/L (21-72); ALBUMIN 3.5 g/dL (3.5-5.0); ALKALINE PHOSPHATASE 54 U/L (38-126); ANION GAP 9 (5-19); ASPARTATE AMINO TRANSFERASE 20 U/L (17-59); BILIRUBIN,DIRECT 0.6 mg/dL (0.0-0.4); BILIRUBIN,TOTAL 1.4 mg/dL (0.2-1.3); BLOOD UREA NITROGEN 30 mg/dL (7-20); CALCIUM 8.8 mg/dL (8.4-10.2); CARBON DIOXIDE 23 mmol/L (22-30); CHLORIDE 103 mmol/L (98-107); CREATINE KINASE 109 U/L (55-170); GLUCOSE 161 mg/dL (75-110); POTASSIUM 4.7 mmol/L (3.6-5.0); SODIUM 134.7 mmol/L (137-145); TOTAL PROTEIN 6.4 g/dL (6.3-8.2)
[2016-06-23 12:52] LABS: CREATINE KINASE MB 1.82 ng/mL (<4.55); TROPONIN I 0.014 ng/mL
[2016-06-23 13:13] LABS: BAND NEUTROPHILS % (MANUAL) 2 % (3-5); BASOPHILS % (MANUAL) 0 % (0-2); EOSINOPHILS % (MANUAL) 0 % (0-6); LYMPHOCYTES % (MANUAL) 3 % (13-45); TOTAL CELLS COUNTED 100
[2016-06-23 13:15] LABS: POLYCHROMASIA SLIGHT; TOXIC GRANULATION SLIGHT; TOXIC VACUOLATION PRESENT
[2016-06-23] MEDS ORDERED: IPRATROPIUM/ALBUTEROL 0.5-2.5 MG/3 ML AMPUL NEB ONE (14:08)
[2016-06-23] MEDS ORDERED: LEVOFLOXACIN 750 MG/D5W RTU 150 ML IV ONE (14:09)
[2016-06-23] MEDS ORDERED: ACETAMINOPHEN 325 MG TABLET PO PRN (14:37)
[2016-06-23] MEDS ORDERED: ALBUTEROL SULFATE 0.083% NEB 2.5 MG/3 ML AMPUL NEB PRN (14:37)
[2016-06-23] MEDS ORDERED: NORMAL SALINE 1000 ML 1,000 ML IV PRN (14:37)
--- NOTE | 2016-06-23 15:20 | PDOC H&P ---
History of Present Illness Admission Date/PCP: [facility] Patient complains of: Shortness breath History of Present Illness: JADEN PAIZ is a 71 year old male with past history of COPD presents by EMS with several day history of increasing productive cough and shortness of breath. Patient has been followed by pulmonary medicine clinic at [place]. He does not require home oxygen at the time of admission. He denies fevers or chills. He is a former smoker but does not currently smoke. Patient has been administered steroids and nebulizer treatments by EMS. Past Medical History Cardiac Medical History: Reports: Coronary Artery Disease - stenting of the LAD rhythm 2 years ago, f/u cardiac stress testing neg., Hyperlipidema, Hypertension Pulmonary Medical History: Reports: Chronic Obstructive Pulmonary Disease (COPD) GI Medical History: Reports: Gastroesophageal Reflux Disease Musculoskeltal Medical History: Reports: Other - Chronic musculoskeletal pain Past Surgical History Past Surgical History: Reports: Cardiac Catheterization - stent placement, Orthopedic Surgery - L shoulder Social History Information Source: Patient Lives with: Spouse/Significant other Smoking Status: Former Smoker Frequency of Alcohol Use: Rare Hx Recreational Drug Use: No Drugs: None Hx Prescription Drug Abuse: No - Advance Directive Resuscitation Status: Full Code Family History Family History: COPD Parental Family History Reviewed: Yes Children Family History Reviewed: Yes Sibling(s) Family History Reviewed.: Yes Medication/Allergy Home Medications: Albuterol Sulfate [Proair HFA] 2 puff IH Q6HP PRN 03/11/16 Budesonide/Formoterol Fumarate [Symbicort HFA 80-4.5 mcg Inhaler 6.9 gm] 2 puff IH Q12 03/11/16 Cetirizine HCl [Zyrtec 10 mg Tablet] 10 mg PO DAILY 03/11/16 Clopidogrel Bisulfate [Plavix 75 mg Tablet] 75 mg PO DAILY 03/11/16 Finasteride [Proscar 5 mg Tablet] 5 mg PO QHS 03/11/16 Fluticasone Propionate [Flonase Nasal Perry 50 Mcg/Perry 16 gm] 2 sprays NASL DAILY 03/11/16 Morphine Sulfate 15 mg PO BID 03/11/16 Oxycodone HCl [Oxy-Ir 5 mg Tablet] 5 mg PO Q6HP PRN 03/11/16 Pantoprazole Sodium [Protonix] 40 mg PO DAILY 03/11/16 Polyethylene Glycol 3350 [Miralax] 1 cfu PO DAILY 03/11/16 Terazosin HCl [Hytrin] 4 mg PO QHS 03/11/16 Acetaminophen [Tylenol 325 mg Tablet] 650 mg PO Q4HP PRN tablet 03/13/16 Ciprofloxacin HCl [Ciloxan 0.3% Oph Soln 2.5 ml] 1 drop OU Q6 bottle 03/13/16 Levofloxacin [Levaquin 750 mg Tablet] 750 mg PO DAILY #7 tablet 03/13/16 Montelukast Sodium [Singulair 10 mg Tablet] 10 mg PO QHS #30 tablet 03/13/16 Morphine Sulfate [Ms-Contin Sr 15 mg Tablet] 15 mg PO Q12 tablet.sa 03/13/16 Prednisone [Deltasone 20 mg Tablet] 20 mg PO BID #10 tablet 03/13/16 Allergies/Adverse Reactions: Sulfa (Sulfonamide Antibiotics) Allergy (Verified 04/06/16 16:54) Review of Systems Constitutional: ABSENT: chills, fever(s), headache(s), weight gain, weight loss Eyes: ABSENT: visual disturbances Ears: ABSENT: hearing changes Cardiovascular: PRESENT: dyspnea on exertion. ABSENT: chest pain, edema, orthropnea, palpitations Respiratory: PRESENT: cough, dyspnea, sputum. ABSENT: hemoptysis Gastrointestinal: ABSENT: abdominal pain, constipation, diarrhea, hematemesis, hematochezia, nausea, vomiting Genitourinary: ABSENT: dysuria, hematuria Musculoskeletal: ABSENT: joint swelling Integumentary: ABSENT: rash, wounds Neurological: ABSENT: abnormal gait, abnormal speech, confusion, dizziness, focal weakness, syncope Psychiatric: ABSENT: anxiety, depression, homidical ideation, suicidal ideation Endocrine: ABSENT: cold intolerance, heat intolerance, polydipsia, polyuria Hematologic/Lymphatic: ABSENT: easy bleeding, easy bruising Physical Exam Vital Signs: Temp Pulse Resp BP Pulse Ox 98.2 F 99 19 129/58 H 93 06/23/16 11:49 06/23/16 11:49 06/23/16 14:02 06/23/16 13:01 06/23/16 14:02 PHYSICAL EXAM: GENERAL: Appears well, no acute distress HEENT: Normocephalic, no scleral icterus, conjunctiva clear, EOEM intact, PERRLA , moist mucous membranes NECK: trachea midline, no thyromegally RESPIRATORY: Clear to auscultation, no wheezes/rhonchi CARDIAC: Regular rate and rhythm, no murmur/amanda/rub ABDOMEN: Soft, no distension, no tenderness, no guarding, normal bowel sounds, negative Brito sign RECTAL: deferred : deferred EXTREMITIES: No edema, cyanosis, clubbing MUSCULOSKELETAL: No joint swelling or deformity VASCULAR: normal peripheral pulses NEUROLOGIC: Alert, oriented to person/place/time, normal speech, cranial nerves grossly intact, 5/5 strength in all extremities, tactile sensation intact in all extremities SKIN: No rash, no wounds, no worrisome skin lesions PSYCHIATRIC: Normal mood, normal affect Results Laboratory Results: 06/23/16 12:10 06/23/16 12:10 06/23/16 06/23/16 12:10 12:10 WBC 13.7 H RBC 3.79 L Hgb 11.2 L Hct 34.6 L MCV 91 MCH 29.6 MCHC 32.4 RDW 14.4 H Plt Count 166 Seg Neutrophils % Not Reportable Lymphocytes % Not Reportable Monocytes % Not Reportable Eosinophils % Not Reportable Basophils % Not Reportable Absolute Neutrophils Not Reportable Absolute Lymphocytes Not Reportable Absolute Monocytes Not Reportable Absolute Eosinophils Not Reportable Absolute Basophils Not Reportable Sodium 134.7 L Potassium 4.7 Chloride 103 Carbon Dioxide 23 Anion Gap 9 BUN 30 H Creatinine 1.50 H Est GFR ( Amer) 56 L Est GFR (Non-Af Amer) 46 L Glucose 161 H Calcium 8.8 Total Bilirubin 1.4 H AST 20 ALT 28 Alkaline Phosphatase 54 Total Protein 6.4 Albumin 3.5 06/23/16 06/23/16 12:10 12:10 Creatine Kinase 109 CK-MB (CK-2) 1.82 Troponin I 0.014 NT-Pro-B Natriuret Pep 2260 H Impressions: Chest X-Ray 06/23/16 11:47 IMPRESSION: 1. Chronic interstitial lung changes with possible superimposed left lower lobe pneumonia. 2. Pulmonary emphysema. 3. Right pulmonary nodule that appears to be partially calcified. Assessment & Plan - Diagnosis (1) Acute hypoxemic respiratory failure Is this a current diagnosis for this admission?: YesPlan: Continue oxygen supplementation. We will have to assess if patient needs home oxygen upon discharge. His chest x-ray does show chronic appearing interstitial changes so I would not be surprised if patient does require oxygen. (2) Pneumonia Qualifiers: Pneumonia type: due to unspecified organism Laterality: right Lung location: lower lobe of lung Qualified Code(s): J18.1 - Lobar pneumonia, unspecified organism Is this a current diagnosis for this admission?: YesPlan: Likely bacterial. IV Rocephin and IV azithromycin. Blood and sputum cultures. (3) Systemic inflammatory response syndrome (SIRS) Is this a current diagnosis for this admission?: Yes (4) COPD (chronic obstructive pulmonary disease) Is this a current diagnosis for this admission?: YesPlan: When necessary albuterol nebulizer treatment. Patient is followed by pulmonary medicine at the [place]. (5) Coronary artery disease Is this a current diagnosis for this admission?: YesPlan: Verify home medications and resume. (6) Hypertension Is this a current diagnosis for this admission?: Yes (7) Chronic pain requiring opiod analgesia Is this a current diagnosis for this admission?: YesPlan: When necessary oxycodone. Verify home medications. - Time Time Spent: Greater than 70 Minutes Anticipated discharge: Home Within: within 72 hours
[2016-06-23] MEDS: CEFTRIAXONE 1 GM/D5W RTU 50 ML IV SCH (17:32)
[2016-06-23] MEDS: OXYCODONE HCL IR 5 MG TABLET PO PRN (18:29)
[2016-06-23] MEDS: AZITHROMYCIN 500 MG in DEXTROSE 5%-WATER 250 ML IV SCH (20:21)
[2016-06-23] MEDS ORDERED: MORPHINE SULFATE IR 15 MG TABLET PO SCH (22:00)
[2016-06-23] MEDS ORDERED: (PENDING PHARMACY ID) (Terazosin Hcl [Hytrin] 4 MG) PO SCH (22:00)
[2016-06-23] MEDS ORDERED: ATORVASTATIN CALCIUM 80 MG TABLET PO SCH (22:00)
[2016-06-23] MEDS: HEPARIN SOD (PORCINE) 5,000 UNIT/ML 1 ML SYRINGE SUBCUT SCH (22:05)
--- NOTE | 2016-06-23 22:10 | EKG REPORT ---
SEVERITY:- ABNORMAL ECG - SINUS RHYTHM LEFT VENTRICULAR HYPERTROPHY : Confirmed by: Genevieve Berry MD 23-Jun-2016 22:10:15
[2016-06-23] MEDS: ATORVASTATIN CALCIUM 40 MG TABLET PO SCH (22:57)
[2016-06-23] MEDS: BUDESONIDE/FORMOTEROL 80-4.5 MCG 60 PUFF/6.9 GM MDI IH SCH (22:58)
[2016-06-23] MEDS: DOXAZOSIN MESYLATE 4 MG TABLET PO SCH (22:59)
[2016-06-23] MEDS: GUAIFENESIN 600 MG TABLET.SA PO SCH (23:00)
[2016-06-23] MEDS: MORPHINE SULFATE SR 15 MG TABLET PO SCH (23:01)
[2016-06-23] MEDS: FINASTERIDE 5 MG TABLET PO SCH (23:02)
[2016-06-23] MEDS: AMITRIPTYLINE HCL 10 MG TABLET PO SCH (23:03)
[2016-06-24] MEDS: OXYCODONE HCL IR 5 MG TABLET PO PRN (02:07)
[2016-06-24] MEDS: HEPARIN SOD (PORCINE) 5,000 UNIT/ML 1 ML SYRINGE SUBCUT SCH ×3 (06:00→22:04)
[2016-06-24] MEDS ORDERED: LANSOPRAZOLE 30 MG TAB.RAP.DR PO SCH (06:00)
[2016-06-24] MEDS: LEVOTHYROXINE SODIUM 0.025 MG TABLET PO SCH (08:00)
[2016-06-24] MEDS: CYCLOBENZAPRINE HCL 10 MG TABLET PO SCH ×2 (10:00→18:00)
[2016-06-24] MEDS: GUAIFENESIN 600 MG TABLET.SA PO SCH ×2 (10:00→22:00)
[2016-06-24] MEDS: BUDESONIDE/FORMOTEROL 80-4.5 MCG 60 PUFF/6.9 GM MDI IH SCH ×2 (10:00→22:00)
[2016-06-24] MEDS: CLOPIDOGREL BISULFATE 75 MG TABLET PO SCH (10:00)
[2016-06-24] MEDS: CETIRIZINE 10 MG TABLET PO SCH (10:00)
[2016-06-24] MEDS: CEFTRIAXONE 1 GM/D5W RTU 50 ML IV SCH (16:00)
[2016-06-24] MEDS: AZITHROMYCIN 500 MG in DEXTROSE 5%-WATER 250 ML IV SCH (18:00)
[2016-06-24] MEDS: MORPHINE SULFATE SR 15 MG TABLET PO SCH (22:00)
[2016-06-24] MEDS: DOXAZOSIN MESYLATE 4 MG TABLET PO SCH (22:00)
[2016-06-24] MEDS: AMITRIPTYLINE HCL 10 MG TABLET PO SCH (22:00)
[2016-06-24] MEDS: ATORVASTATIN CALCIUM 40 MG TABLET PO SCH (22:00)
[2016-06-24] MEDS: FINASTERIDE 5 MG TABLET PO SCH (22:00)
--- NOTE | 2016-06-24 23:43 | PROGRESS NOTE E ---
Progress Note NAME: JADEN PAIZ : 1945 AGE: 71Y DATE: 06/24/2016 ROOM: 413 TIME SPENT MANAGING PATIENT: Twenty-five minutes. SUBJECTIVE: The patient's respiratory status is much better with regard to shortness of breath but not back to baseline. He has no fever or chills, no nausea or vomiting, no chest pain. His oxygen has been titrated down to 1 L nasal cannula by respiratory therapist. OBJECTIVE: VITAL SIGNS: Temperature 97.4, blood pressure 144/68, pulse 69, respirations 20, O2 sats 95% on 3 L nasal cannula, remaining at 95% range on 1 L nasal cannula. GENERAL: The patient is alert, in no acute distress, sitting on the edge of the bed. HEENT: Sclerae are nonicteric. Oropharynx has moist mucous membranes. NECK: No JVD. Midline trachea. RESPIRATORY: Left lung field rhonchi. CARDIAC: Regular rate and rhythm. ABDOMEN: Soft, nontender. EXTREMITIES: Have no edema, cyanosis or clubbing. NEUROLOGIC: Cranial nerves II-XII are intact. Normal strength and sensation in all 4 extremities. LABORATORY DATA: White blood count 15.9, hemoglobin 11.0, platelets 158. Sodium 141, potassium 4.6, chloride 99, bicarb 36, BUN 35, creatinine 1.0, glucose 133. ASSESSMENT AND PLAN: 1. HYPOXEMIC RESPIRATORY FAILURE. Continue to wean oxygen as tolerated. 2. SYSTEMIC INFLAMMATORY RESPONSE SYNDROME SECONDARY TO PNEUMONIA. 3. LEFT LOWER LOBE PNEUMONIA. Likely bacterial. Continue IV antibiotics for now pending further cultures. 4. CORONARY ARTERY DISEASE. 5. CHRONIC PAIN WITH CHRONIC OPIATE DEPENDENCE. DICTATING PHYSICIAN: PATTI SHARMA M.D. [id number] PHY#: [id number] ID: [id number] JOB#: [id number] ACCT: [id number] cc: >
[2016-06-25] MEDS: OXYCODONE HCL IR 5 MG TABLET PO PRN (03:26)
[2016-06-25 05:02] LABS: ABSOLUTE EOSINOPHILS # (AUTO) 0.1 10^3/uL (0.0-0.6); ABSOLUTE LYMPHOCYTES (AUTO) 0.8 10^3/uL (0.5-4.7); ABSOLUTE MONOCYTES (AUTO) 0.8 10^3/uL (0.1-1.4); ABSOLUTE NEUT (AUTO) 11.1 10^3/uL (1.7-8.2); BASOPHILS % (AUTO) 0.2 % (0-2); EOSINOPHILS % (AUTO) 0.5 % (0-6); HEMATOCRIT 32.1 % (37.9-51.0); HEMOGLOBIN 10.8 g/dL (13.5-17.0); HGB HCT DIFFERENCE 0.3; LYMPHOCYTES % (AUTO) 6.5 % (13-45); MEAN CORPUSCULAR HEMOGLOBIN 30.2 pg (27.0-33.4); MEAN CORPUSCULAR HGB CONC 33.8 g/dL (32.0-36.0); MEAN CORPUSCULAR VOLUME 89 fl (80-97); MONOCYTES % (AUTO) 6.3 % (3-13); RED BLOOD COUNT 3.59 10^6/uL (4.35-5.55); RED CELL DISTRIBUTION WIDTH 14.3 % (11.5-14.0); SEGMENTED NEUTROPHILS % (AUTO) 86.5 % (42-78); WHITE BLOOD COUNT 12.9 10^3/uL (4.0-10.5)
[2016-06-25 05:17] LABS: ANION GAP 11 (5-19); BLOOD UREA NITROGEN 34 mg/dL (7-20); CALCIUM 8.7 mg/dL (8.4-10.2); CARBON DIOXIDE 23 mmol/L (22-30); CHLORIDE 105 mmol/L (98-107); CREATININE RESULT 0.94 mg/dL (0.52-1.25); GLUCOSE 121 mg/dL (75-110); SODIUM 139.1 mmol/L (137-145)
[2016-06-25] MEDS: HEPARIN SOD (PORCINE) 5,000 UNIT/ML 1 ML SYRINGE SUBCUT SCH (06:03)
[2016-06-25 06:26] LABS: MEAN CORPUSCULAR HEMOGLOBIN 29.6 pg (27.0-33.4); MEAN CORPUSCULAR HGB CONC 32.4 g/dL (32.0-36.0); MEAN CORPUSCULAR VOLUME 91 fl (80-97); RED BLOOD COUNT 3.72 10^6/uL (4.35-5.55); RED CELL DISTRIBUTION WIDTH 14.3 % (11.5-14.0); WHITE BLOOD COUNT 15.9 10^3/uL (4.0-10.5)
[2016-06-25 08:58] LABS: BAND NEUTROPHILS % (MANUAL) 2 % (3-5); BASOPHILS % (MANUAL) 0 % (0-2); EOSINOPHILS % (MANUAL) 0 % (0-6); LYMPHOCYTES % (MANUAL) 4 % (13-45); TOTAL CELLS COUNTED 100
[2016-06-25 08:59] LABS: OVALOCYTES SLIGHT; POIKILOCYTOSIS SLIGHT; POLYCHROMASIA SLIGHT; ROULEAUX 1+; TOXIC GRANULATION 1+
[2016-06-25] MEDS: LEVOTHYROXINE SODIUM 0.025 MG TABLET PO SCH (09:46)
[2016-06-25] MEDS: GUAIFENESIN 600 MG TABLET.SA PO SCH (09:47)
[2016-06-25] MEDS: CLOPIDOGREL BISULFATE 75 MG TABLET PO SCH (09:47)
[2016-06-25] MEDS: CETIRIZINE 10 MG TABLET PO SCH (09:47)
[2016-06-25] MEDS: BUDESONIDE/FORMOTEROL 80-4.5 MCG 60 PUFF/6.9 GM MDI IH SCH (09:47)
[2016-06-25] MEDS: CYCLOBENZAPRINE HCL 10 MG TABLET PO SCH (09:47)
[2016-06-25] MEDS: MORPHINE SULFATE SR 15 MG TABLET PO SCH (09:47)
--- NOTE | 2016-06-25 10:50 | Physician Advisory Note ---
Physician Advisor ProgressNote .: Pursuant to the plan for [facility], I have reviewed the medical record for this patient. Physician Advisor Statement: Possible documentation opportunities if attending agrees: 1. "LLL PNA, suspect ____ type" ["Bacterial" isn't enough now - need to specify likely type of bacteria: GPos? GNeg? ...] 2. "Acute Hypoxemic Resp Failure with labored breathing initially" [ labored per ED nsg assessment - if attg documents this info, auditors have less chance of denying dx from not seeing the supporting info ] 3. "Acute hyponatremia, likely due to " 4. "possible sepsis due to PNA, present on adm, ruled out" - Anytime SIRS may be due to infxn, we have to say whether or not we think sepsis was present, or we get a query to clarify. If you really don't think pt likely had sepsis initially, just say it was ruled out. As always, if concerned about any unstable VS or abnormal labs, please comment on them & note what doing about them, & please document each day the potential clinical problems you are concerned could occur if pt not kept in hospital for tx at this time. Thanks for your help with documentation accuracy/specificity improvement! Karen Kebede MD [facility] Physician Advisor, Fellow of Hospital Medicine
[2016-06-25 12:27] VITALS: BP 158/71
[2016-06-25 13:51] LABS: ANION GAP 14 (5-19); BLOOD UREA NITROGEN 33 mg/dL (7-20); CALCIUM 8.8 mg/dL (8.4-10.2); CARBON DIOXIDE 21 mmol/L (22-30); CHLORIDE 102 mmol/L (98-107); CREATININE RESULT 1.16 mg/dL (0.52-1.25); GLUCOSE 134 mg/dL (75-110); POTASSIUM 4.3 mmol/L (3.6-5.0); SODIUM 136.9 mmol/L (137-145)
--- NOTE | 2016-06-26 08:06 | DISCHARGE SUMMARY E ---
Discharge Summary NAME: JADEN PAIZ : 1945 AGE: 71Y ADMITTED: 06/23/2016 DISCHARGED: 06/25/2016 PRIMARY CARE PROVIDER: Dr. Ten Bhat, [facility] DISCHARGE MEDICATIONS: 1. Doxycycline 100 mg p.o. b.i.d. 2. Protonix 40 mg p.o. daily. 3. Terazosin 4 mg p.o. nightly. 4. Proscar 5 mg p.o. nightly. 5. Gilbert 5/325 one p.o. t.i.d. p.r.n. 6. Synthroid 20 mcg p.o. daily. 7. Symbicort 80/4.5 two puffs twice a day. 8. Zyrtec 10 mg daily. 9. Plavix 75 mg daily. 10. Flexeril 5 mg p.o. b.i.d. 11. Albuterol HFA 2 puffs q.i.d. p.r.n. 12. Elavil 20 mg p.o. nightly. 13. MS-Contin 15 mg p.o. q.12 h. DISCHARGE DIAGNOSES: 1. Acute hypoxemic respiratory failure. 2. Systemic inflammatory response syndrome. 3. Pneumonia. 4. COPD, chronic. 5. Coronary artery disease. 6. Hypertension. 7. Chronic pain requiring chronic opiate analgesia. 8. Anemia. HISTORY OF PRESENT ILLNESS: Refer to admission history and physical. HOSPITAL COURSE: The patient was admitted for acute hypoxemic respiratory failure associated with left lower lobe pneumonia and chronic lung disease. He was initially placed on IV antibiotics. Workup was negative. He responded very quickly to IV Rocephin and IV azithromycin. He was in stable condition at the time of discharge with a room air O2 saturation with ambulation of 94%. The patient has been transitioned to outpatient doxycycline. He is followed by Dr. Bhat at the [facility] and apparently also followed by a pulmonary doctor at the [facility] as well. The patient was just mildly hyponatremic with a sodium of 134 on admission. This resolved spontaneously. DISCHARGE DIET: Cardiac. DISCHARGE ACTIVITY: As tolerated. DISCHARGE CONDITION: Stable. DISCHARGE ALLERGIES: SULFA. CODE STATUS: FULL CODE STATUS. LABS AT TIME OF DISCHARGE: White blood count 12.9 down from 13.7 on admission, hemoglobin 10.8, hematocrit 32.1, platelets 181. Sodium 139, potassium 4.1, chloride 105, bicarbonate 23, BUN 34, creatinine 0.94, glucose 121, calcium 8.7. Chest x-ray: Chronic scarring in both lungs. Thirty minutes spent on this discharge. DICTATING PHYSICIAN: PATTI SHARMA M.D. [id number] PHY#: [id number] ID: [id number] JOB#: [id number] ACCT: [id number] cc:PATTI SHARMA WILBERT >
== END 2016-06-25 12:50 | disposition home or self-care (01) | DRG 189 ==
LOC: ER 11:42 → EH 14:37 → UNDOADMIN 14:56 → 4N 17:12
PROVIDERS: ADMIT Family Medicine; ATTEND Family Medicine
DX: J96.01 Acute respiratory failure with hypoxia (principal); J18.9 Pneumonia, unspecified organism; J44.1 Chronic obstructive pulmonary disease with (acute) exacerbation; E87.1 Hypo-osmolality and hyponatremia; I25.10 Atherosclerotic heart disease of native coronary artery without angina pectoris; I10 Essential (primary) hypertension; G89.29 Other chronic pain; D64.9 Anemia, unspecified; E78.5 Hyperlipidemia, unspecified; K21.9 Gastro-esophageal reflux disease without esophagitis; Z99.81 Dependence on supplemental oxygen; Z79.891 Long term (current) use of opiate analgesic; Z79.02 Long term (current) use of antithrombotics/antiplatelets; Z79.899 Other long term (current) drug therapy; Z88.2 Allergy status to sulfonamides; Z95.5 Presence of coronary angioplasty implant and graft; Z87.891 Personal history of nicotine dependence; Z83.6 Family history of other diseases of the respiratory system
CPT/HCPCS: 36415; 71010; 80048; 80053; 82550; 82553; 83880; 84484; 85025; 87040; 93005; 93010; 99291; J0456; J0696; J1644; J1956; J3490; J7030; J7060; J7620

== ENCOUNTER 2017-05-30 08:31 | Inpatient (IN) | payer OTHER, MEDICARE ==
[2017-05-30 08:48] LABS: INTERNATIONAL RATION (INR) 1.14; PROTHROMBIN TIME 15.2 SEC (11.4-15.4)
[2017-05-30 08:53] LABS: VENOUS BLOOD BASE EXCESS -3.9 mmol/L; VENOUS BLOOD HCO3 20.8 mmol/L (20-32); VENOUS BLOOD PCO2 36.6 mmHg (35-63); VENOUS BLOOD PH 7.37 (7.30-7.42)
[2017-05-30 08:54] LABS: HEMATOCRIT 34.7 % (37.9-51.0); HEMOGLOBIN 11.5 g/dL (13.5-17.0); MEAN CORPUSCULAR HEMOGLOBIN 29.5 pg (27.0-33.4); MEAN CORPUSCULAR HGB CONC 33.2 g/dL (32.0-36.0); MEAN CORPUSCULAR VOLUME 89 fl (80-97); PLATELET COUNT 194 10^3/uL (150-450); RED BLOOD COUNT 3.91 10^6/uL (4.35-5.55); RED CELL DISTRIBUTION WIDTH 14.5 % (11.5-14.0); WHITE BLOOD COUNT 11.5 10^3/uL (4.0-10.5)
--- NOTE | 2017-05-30 08:54 | RADIOLOGY REPORT (SQ) ---
EXAM DESCRIPTION: CHEST SINGLE VIEW COMPLETED DATE/TIME: 05/30/2017 8:45 am REASON FOR STUDY: bed 2 sepsis protocol COMPARISON: 06/23/2016 EXAM PARAMETERS: NUMBER OF VIEWS: One view. TECHNIQUE: Single frontal radiographic view of the chest acquired. RADIATION DOSE: NA LIMITATIONS: None. FINDINGS: LUNGS AND PLEURA: Underlying emphysema and interstitial lung disease with increase lower l obe airspace disease bilaterally suspicious for superimposed pneumonia. MEDIASTINUM AND HILAR STRUCTURES: No masses. Contour normal. HEART AND VASCULAR STRUCTURES: Heart normal in size. Normal vasculature. BONES: No acute findings. HARDWARE: None in the chest. OTHER: No other significant finding. IMPRESSION: PROBABLE BILATERAL LOWER LOBE PNEUMONIA SUPERIMPOSED ON CHRONIC LUNG DISEASE. TECHNICAL DOCUMENTATION: JOB ID: [id number] [employer]- All Rights Reserved Reading location - IP/workstation name: [email or web address]
[2017-05-30 09:01] LABS: ALANINE AMINOTRANSFERASE 35 U/L (21-72); ALBUMIN 3.3 g/dL (3.5-5.0); ALKALINE PHOSPHATASE 67 U/L (38-126); ANION GAP 15 (5-19); ASPARTATE AMINO TRANSFERASE 60 U/L (17-59); BILIRUBIN,DIRECT 0.6 mg/dL (0.0-0.4); BILIRUBIN,TOTAL 0.8 mg/dL (0.2-1.3); BLOOD UREA NITROGEN 50 mg/dL (7-20); CALCIUM 9.1 mg/dL (8.4-10.2); CARBON DIOXIDE 23 mmol/L (22-30); CHLORIDE 100 mmol/L (98-107); GLUCOSE 119 mg/dL (75-110); POTASSIUM 4.7 mmol/L (3.6-5.0); TOTAL PROTEIN 6.3 g/dL (6.3-8.2)
[2017-05-30] MEDS ORDERED: METHYLPREDNISOLONE INJ 125 MG/2 ML SDV IV ONE (09:09)
[2017-05-30] MEDS ORDERED: IPRATROPIUM/ALBUTEROL 0.5-2.5 MG/3 ML AMPUL NEB ONE (09:09)
[2017-05-30 09:16] LABS: ABSOLUTE LYMPHOCYTES# (MANUAL) 0.2 10^3/uL (0.5-4.7); ABSOLUTE MONOCYTES # (MANUAL) 0.3 10^3/uL (0.1-1.4); ABSOLUTE NEUTROPHILS# (MANUAL) 10.7 10^3/uL (1.7-8.2); BASOPHILS % (MANUAL) 0 % (0-2); EOSINOPHILS % (MANUAL) 2 % (0-6); LYMPHOCYTES % (MANUAL) 2 % (13-45); MONOCYTES % (MANUAL) 3 % (3-13); SEGMENTED NEUTROPHILS % (MAN) 93 % (42-78); TOTAL CELLS COUNTED 100
[2017-05-30 09:17] LABS: ACANTHOCYTES SLIGHT; OVALOCYTES SLIGHT; PLATELET COMMENT ADEQUATE; PLATELET LARGE PRESENT; POIKILOCYTOSIS SLIGHT; POLYCHROMASIA SLIGHT
--- NOTE | 2017-05-30 09:28 | EKG REPORT ---
SEVERITY:- ABNORMAL ECG - SINUS TACHYCARDIA PROBABLE LEFT ATRIAL ABNORMALITY PROBABLE ANTEROSEPTAL INFARCT, AGE INDETERM : Confirmed by: Stephanie Rodriguez 30-May-2017 09:27:03
[2017-05-30] MEDS ORDERED: LEVOFLOXACIN 500 MG/D5W RTU 500 MG/100 ML RTUPB IV ONE (09:53)
--- NOTE | 2017-05-30 09:54 | ER Document Report ---
ED Respiratory Problem - General Chief Complaint: Shortness Of Breath Stated Complaint: BREATHING DIFFICULTY Time Seen by Provider: 05/30/17 08:56 Mode of Arrival: Medic Information source: Patient Notes: Patient is a 72-year-old male with COPD, emphysema, history of a stroke who presents to the ER today for increased shortness of breath and wheezing over the past week with weakness over the past couple of days. Patient denies any fever, chills that he knows of, productive cough but states that he has had "a slight cough." Patient has been taking his albuterol inhaler and has had it at least 5-6 times this morning. He denies any chest pain. TRAVEL OUTSIDE OF THE [place] IN LAST 30 DAYS: No COUNTRY TRAVELED TO/FROM: [place] - Related Data Allergies/Adverse Reactions: Sulfa (Sulfonamide Antibiotics) Allergy (Verified 04/06/16 16:54) Past Medical History - General Information source: Patient - Social History Smoking Status: Former Smoker Chew tobacco use (# tins/day): No Frequency of alcohol use: None Drug Abuse: None Family History: COPD Patient has suicidal ideation: No Patient has homicidal ideation: No - Past Medical History Cardiac Medical History: Reports: Hx Coronary Artery Disease - stenting of the LAD rhythm 2 years ago, f/u cardiac stress testing neg., Hx Hypercholesterolemia , Hx Hypertension Pulmonary Medical History: Reports: Hx COPD Renal/ Medical History: Denies: Hx Peritoneal Dialysis GI Medical History: Reports: Hx Gastroesophageal Reflux Disease Past Surgical History: Reports: Hx Cardiac Catheterization - stent placement, Hx Orthopedic Surgery - L shoulder - Immunizations Hx Diphtheria, Pertussis, Tetanus Vaccination: No Review of Systems - Review of Systems Constitutional: No symptoms reported EENT: No symptoms reported Cardiovascular: No symptoms reported Respiratory: See HPI Gastrointestinal: No symptoms reported Genitourinary: No symptoms reported Male Genitourinary: No symptoms reported Musculoskeletal: No symptoms reported Skin: No symptoms reported Hematologic/Lymphatic: No symptoms reported Neurological/Psychological: No symptoms reported Physical Exam - Vital signs Vitals: Temp 98.3 F 05/30/17 08:32 - Notes Notes: PHYSICAL EXAMINATION: GENERAL: Elderly appearing, on nasal cannula oxygen, but in no acute distress. HEAD: Atraumatic, normocephalic. EYES: Pupils equal round and reactive to light, extraocular movements intact, sclera anicteric, conjunctiva are normal. ENT: ear canals without erythema or foreign body, TMs pearly dickson with good bony landmarks, nares patent, oropharynx clear without exudates. Moist mucous membranes. Airway patent NECK: Normal range of motion, supple without lymphadenopathy LUNGS: Wheezing and rhonchi bilaterally in lower lobes, no rales HEART: Regular rate and rhythm without murmurs ABDOMEN: Soft, no tenderness. No guarding, no rebound BACK: no vertebral tenderness, normal ROM GI/: no CVA tenderness EXTREMITIES: Normal range of motion, no pitting edema. No cyanosis. NEUROLOGICAL: Cranial nerves grossly intact. Normal sensory/motor exams. PSYCH: Normal mood, normal affect. SKIN: Warm, Dry, normal turgor, no rashes or lesions noted Course - Re-evaluation Re-evalutation: 05/30/17 10:30 Patient has a leukocytosis of 11.5, bilateral lower lobe pneumonia on chest x- ray superimposed on chronic COPD. Patient satting at 87-92% on 4 L of oxygen but respiratory rate is great at 16 breaths per minute and he does not look to be in any respiratory distress at all, sitting comfortably in the bed talking to me in complete sentences without any issue. At this time patient is admitted for pneumonia to [facility], nurse practitioner who accepts at this time. Patient started on Levaquin, given IV fluids. Patient is afebrile here with a blood pressure currently of 102/61 and a pulse of 97 bpm. Lactic acid is normal, blood cultures pending at this time, venous blood gas is unremarkable today. - Vital Signs Vital signs: Temp Pulse Resp BP Pulse Ox 98.3 F 05/30/17 08:32 - Laboratory Result Diagrams: 05/30/17 07:48 05/30/17 07:48 Laboratory results interpreted by me: 05/30/17 05/30/17 07:48 07:48 WBC 11.5 H RBC 3.91 L Hgb 11.5 L Hct 34.7 L RDW 14.5 H Seg Neuts % (Manual) 93 H Lymphocytes % (Manual) 2 L Abs Neuts (Manual) 10.7 H Abs Lymphs (Manual) 0.2 L BUN 50 H Creatinine 1.44 H Est GFR ( Amer) 59 L Est GFR (Non-Af Amer) 48 L Glucose 119 H Direct Bilirubin 0.6 H AST 60 H Albumin 3.3 L Discharge - Discharge Clinical Impression: Pneumonia Qualifiers: Pneumonia type: due to unspecified organism Laterality: bilateral Lung location : lower lobe of lung Qualified Code(s): J18.1 - Lobar pneumonia, unspecified organism COPD (chronic obstructive pulmonary disease) Qualifiers: COPD type: unspecified COPD Qualified Code(s): J44.9 - Chronic obstructive pulmonary disease, unspecified Condition: Stable Disposition: ADMITTED INPATIENT Admitting Provider: [facility] Unit Admitted: Telemetry
[2017-05-30] MEDS ORDERED: NORMAL SALINE 1000 ML 1,000 ML IV ONE (10:14)
[2017-05-30] MEDS ORDERED: ALBUTEROL SULFATE 0.083% NEB 2.5 MG/3 ML AMPUL NEB ONE (10:16)
[2017-05-30] MEDS ORDERED: MAGNESIUM HYDROXIDE SUSP 30 ML UDCUP PO PRN (11:36)
[2017-05-30] MEDS ORDERED: LEVALBUTEROL HCL NEB 0.63 MG/3 ML AMPUL NEB PRN (11:36)
[2017-05-30] MEDS ORDERED: GUAIFENESIN 600 MG TABLET.SA PO ONE (12:30)
--- NOTE | 2017-05-30 13:50 | HISTORY AND PHYSICAL E ---
History and Physical NAME: JADEN PAIZ : 1945 AGE: 72Y ADMITTED: 05/30/2017 ROOM: 416 CODE STATUS: DO NOT RESUSCITATE, DO NOT INTUBATE. PRIMARY CARE PROVIDER: [facility]. CHIEF COMPLAINT: Shortness of breath. HISTORY OF PRESENT ILLNESS: The patient is a 72-year-old male with a past medical history of chronic obstructive pulmonary disease with emphysema, as well as known cerebrovascular disease. The patient presented to the emergency department with a chief complaint of difficulty breathing and wheezing. The patient stated that his symptoms have been ever increasing over the past week that had resulted overall in weakness. The patient denied any fevers and chills. The patient also states that he has a dry persistent cough. The patient had been taking his albuterol inhaler at 5-6 times a day. The patient does not wear oxygen at home. The patient denies any nausea, vomiting, diarrhea, dizziness, or chest pain. Upon presentation to the emergency department, the patient was noted to have mild leukocytosis of 11.5, and his chest x-ray showed obvious emphysema with bilateral lower lobe possible pneumonia versus atelectasis. The patient's sats were noted to be in the high 70's. The patient was placed on 4 L of oxygen, which improved to put the patient between the 88% and 92% at rest. The patient was given a breathing treatment of Solu-Medrol with improvement of his tachypnea. However, the patient was able to fully complete sentences. The patient was given Levaquin as well as IV fluids in addition to the above and the patient had a venous blood gas, which was unremarkable with a normal lactic acid, and the patient was referred to the hospitalist for admission and management. PAST MEDICAL HISTORY: Remarkable for: 1. Chronic obstructive pulmonary disease. 2. Previous admission in 2017 for respiratory failure. 3. Coronary artery disease. 4. Hypertension. 5. Chronic pain with opioid dependency. 6. Anemia. 7. BPH. 8. Hypothyroidism. PAST SURGICAL HISTORY: Includes: 1. Heart catheterization with subsequent stent placement about 3 years ago. I think he is stented in his LAD. 2. Left shoulder surgery. ALLERGIES: Include: SULFA. MEDICATIONS: Home medications are currently in the process of being reconciled, but at this point appears to be: 1. ProAir HFA, 2 puffs inhalation q. 6 hours p.r.n. 2. Symbicort 2 puffs inhalation q. 12 hours. 3. Zyrtec 10 mg p.o. daily. 4. Plavix 75 mg p.o. daily. 5. Proscar 5 mg p.o. q. hour of sleep. 6. Flonase 2 sprays nasally daily. 7. Morphine sulfate 15 mg p.o. b.i.d. 8. OxyIR 5 mg p.o. q. 6 hours p.r.n. 9. Protonix 40 mg p.o. daily. 10. MiraLax 1 capsule p.o. daily. 11. Hytrin 4 mg p.o. q. hour of sleep. 12. Tylenol 650 mg p.o. q. 4 hours p.r.n. 13. Singulair 10 mg p.o. q. hour of sleep. 14. MS-Contin SR 15 mg p.o. q. 12 hours. SOCIAL HISTORY: The patient currently resides at home. The patient is . His surrogate decision maker is his , Mounika, who can be reached at [phone] or [phone]. The patient is a former smoker, who does have about a 45-year pack history. The patient has rare alcohol use. No illicit drug use. FAMILY MEDICAL HISTORY: The patient's father is . He did have COPD. The patient's mother is of presumed coronary disease. The patient does have children that are healthy, but does have a family history of COPD within his siblings. REVIEW OF SYSTEMS: CONSTITUTIONAL: The patient denies any fevers, dizziness, no loss of appetite, but admits to weakness. Skin: The patient denies any diaphoresis, rashes, bruising, itching. HEENT: The patient denies any vision changes, hearing loss. No nasal drainage or sore throat. CARDIOVASCULAR: The patient denies any chest pain, edema, heart palpitations. RESPIRATORY: The patient denies any hemoptysis, but admits to cough, but unable to produce sputum with shortness of breath. GASTROINTESTINAL: Denies any nausea, vomiting, diarrhea, abdominal pain, bloody hematemesis, constipation, melena, hematochezia. GENITOURINARY: The patient denies any hematuria, pyuria, or dysuria. MUSCULOSKELETAL: The patient denies any acute joint pains, but admits to chronic joint pain, especially in his back. NEUROLOGIC: Denies any seizures, tremors, or loss of consciousness. HEMATOLOGIC: Denies any kelly bleeding, easy bruising. ENDOCRINE: Denies any recent weight changes. PSYCHIATRIC: Denies suicidal or homicidal ideations. The rest of the review of the other organ systems is negative. PHYSICAL EXAMINATION: GENERAL: On examination, the patient is a well-developed, well-nourished 72-year-old male who is awake, alert, and oriented to person, place, time, and situation. He is verbal and conversational. He does not appear to be in any acute distress. VITAL SIGNS: Temperature is 98.3, pulse 107, respirations 21, blood pressure is 142/54, oxygen saturation is 92% on 4 L nasal cannula. SKIN: Warm and dry. No rash. He is not diaphoretic. HEENT: Pupils equal, round, and reactive to light and accommodation. Conjunctivae pink. Sclerae are nonicteric. There are no mouth lesions. NECK: Supple. No JVD. No palpable lymphadenopathy or thyromegaly. CARDIOVASCULAR SYSTEM: Heart is regular. There is no murmur or rub. CHEST: Symmetrical, diminished with some expiratory wheezes noted in the upper lung muñoz, slightly labored. ABDOMEN: Soft, nontender, and nondistended. Bowel sounds are present. No palpable organomegaly. BACK: No CVA tenderness or sacral edema. EXTREMITIES: No clubbing, cyanosis, edema, or peripheral signs of embolization +1 pedal pulses noted bilaterally. PSYCHIATRIC: Appropriate affect, pleasant mood. DIAGNOSTIC STUDIES: Lab values are as follows: Hematology obtained on 05/30/2017: WBC is 11.5, hemoglobin is 11.5, hematocrit is 34.7, platelet count is 194,000. Venous blood gas obtained on 05/30/2017 showed a pH of 7.37, pCO2 is 36.6, bicarb is 20.8. Chemistries obtained on 05/30/2017: Sodium is 138, potassium 4.7, chloride is 100, carbon dioxide 23, BUN 50, creatinine is 1.44, glucose 199, lactic acid 1.6, calcium is 9.1, bilirubin 0.1, AST 60, ALT is 35, alk phos 67, total protein is 6.3, albumin 3.3. BNP is 1530. IMPRESSION AND PLAN: 1. Chronic obstructive pulmonary disease exacerbation. Will schedule steroids, also nebulizers as needed, supplemental O2. Will add a flutter valve, incentive spirometry and follow. 2. Bibasilar pneumonia versus atelectasis. Will encourage incentive spirometry, cover with Levaquin for now. The patient has not been febrile, so this may soon be able to be discontinued. Will follow. 3. Acute on chronic hypoxemic respiratory failure. Will continue supplemental O2 and follow. 4. Acute kidney injury. The patient may be dehydrated. It looks like his oral intake has been somewhat limited due to his shortness of breath. His creatinine is 1.4 today, where is baseline normally is in the 1 range. The patient has been bolused 1 L of fluid. Will repeat chemistries in the a.m. and not give the patient any more fluids this evening and monitor. 5. Coronary artery disease. The patient is uncertain when his last echo was. The patient had an elevated BNP of 1530. This accompanied with some intermittent ankle edema and dyspnea, do want to make certain this is not a component of volume overload, which could be contributing to this creatinine. Will obtain echocardiogram and use fluids judiciously. 6. Opioid dependency, continuous. Will continue the patient's home regimen as directed by pain management. 7. Benign prostatic hyperplasia. Will resume the patient's home medications. DISPOSITION: The patient is a DO NOT RESUSCITATE, DO NOT INTUBATE, as the patient has expressed a desire for natural and has declined CPR or artificial mechanical ventilation. Will admit the patient to inpatient telemetry as the patient's expected length of stay will surpass 2 midnights. TIME SPENT: Time spent on this admission including assessment and plan, physical examination, patient education, and review of records was 50 minutes. DICTATING PHYSICIAN: CÉSAR KENNEY NP [id number] PHY#: [id number] ID: [id number] JOB#: [id number] ACCT: [id number] cc:BJ RANDOLPH M.D. >
[2017-05-30] MEDS: LEVALBUTEROL HCL NEB 1.25 MG/3 ML AMPUL NEB SCH ×2 (14:01→19:55)
[2017-05-30 14:17] LABS: APPEARANCE,URINE SLIGHTLY-CLOUDY; BILIRUBIN,URINE NEGATIVE (NEGATIVE); COLOR,URINE YELLOW; GLUCOSE, URINE NEGATIVE (NEGATIVE); KETONES,URINE NEGATIVE (NEGATIVE); LEUKOCYTE ESTERASE,URINE NEGATIVE (NEGATIVE); NITRITE,URINE NEGATIVE (NEGATIVE); PROTEIN,URINE NEGATIVE (NEGATIVE); URINE SPECIFIC GRAVITY 1.015
[2017-05-30] MEDS: METHYLPREDNISOLONE INJ 40 MG/1 ML SDV IV SCH ×2 (15:14→20:53)
[2017-05-30] MEDS: HEPARIN SOD (PORCINE) 5,000 UNIT/ML 1 ML SYRINGE SUBCUT SCH ×2 (15:15→20:52)
[2017-05-30] MEDS: DOCUSATE SODIUM 100 MG CAPSULE PO SCH (17:12)
[2017-05-30] MEDS: HYDROCODONE/ACETAMINOPHEN 5-325 MG TABLET PO PRN (17:53)
[2017-05-30] MEDS: MONTELUKAST SODIUM 10 MG TABLET PO SCH (17:56)
[2017-05-30] MEDS: CYCLOBENZAPRINE HCL 10 MG TABLET PO SCH (20:53)
[2017-05-30] MEDS: ACETAMINOPHEN 325 MG TABLET PO PRN (20:53)
[2017-05-30] MEDS: GUAIFENESIN 600 MG TABLET.SA PO SCH (20:54)
[2017-05-30] MEDS: AMITRIPTYLINE HCL 10 MG TABLET PO SCH (21:08)
[2017-05-30] MEDS: FINASTERIDE 5 MG TABLET PO SCH (21:09)
[2017-05-30] MEDS: DOXAZOSIN MESYLATE 4 MG TABLET PO SCH (21:10)
[2017-05-30] MEDS ORDERED: (PENDING PHARMACY ID) (Cyclobenzaprine Hcl [Flexeril 5 Mg Tablet] 5 MG) PO SCH (22:00)
[2017-05-30] MEDS ORDERED: (PENDING PHARMACY ID) (Terazosin Hcl [Hytrin] 4 MG) PO SCH (22:00)
[2017-05-30] MEDS ORDERED: ATORVASTATIN CALCIUM 80 MG TABLET PO SCH (22:00)
[2017-05-30] MEDS ORDERED: BUDESONIDE/FORMOTEROL 80-4.5 MCG 60 PUFF/6.9 GM MDI IH ONE (22:09)
[2017-05-30] MEDS ORDERED: HYDRALAZINE HCL 25 MG TABLET PO ONE (22:45)
[2017-05-30] MEDS ORDERED: AMLODIPINE BESYLATE 10 MG TABLET PO ONE (23:00)
[2017-05-30] MEDS: BUDESONIDE/FORMOTEROL 80-4.5 MCG 60 PUFF/6.9 GM MDI IH SCH (23:16)
[2017-05-31] MEDS: LEVALBUTEROL HCL NEB 1.25 MG/3 ML AMPUL NEB SCH ×4 (02:06→19:59)
[2017-05-31] MEDS: HEPARIN SOD (PORCINE) 5,000 UNIT/ML 1 ML SYRINGE SUBCUT SCH ×3 (05:13→21:16)
[2017-05-31] MEDS: LANSOPRAZOLE 30 MG TAB.RAP.DR PO SCH (05:13)
[2017-05-31] MEDS: METHYLPREDNISOLONE INJ 40 MG/1 ML SDV IV SCH ×3 (05:13→21:15)
[2017-05-31] MEDS: LEVOTHYROXINE SODIUM 0.025 MG TABLET PO SCH (05:14)
[2017-05-31] MEDS: HYDROCODONE/ACETAMINOPHEN 5-325 MG TABLET PO PRN ×3 (05:18→21:15)
[2017-05-31 07:42] LABS: ANION GAP 15 (5-19); BLOOD UREA NITROGEN 46 mg/dL (7-20); CALCIUM 9.2 mg/dL (8.4-10.2); CARBON DIOXIDE 26 mmol/L (22-30); CHLORIDE 102 mmol/L (98-107); GLUCOSE 148 mg/dL (75-110); POTASSIUM 4.7 mmol/L (3.6-5.0); SODIUM 142.7 mmol/L (137-145)
[2017-05-31] MEDS: LEVOFLOXACIN 750 MG TABLET PO SCH (09:55)
[2017-05-31] MEDS: HYDRALAZINE HCL 25 MG TABLET PO SCH ×2 (09:55→21:15)
[2017-05-31] MEDS: BUDESONIDE/FORMOTEROL 80-4.5 MCG 60 PUFF/6.9 GM MDI IH SCH ×2 (09:55→21:15)
[2017-05-31] MEDS: GUAIFENESIN 600 MG TABLET.SA PO SCH ×2 (09:55→21:14)
[2017-05-31] MEDS: CETIRIZINE 10 MG TABLET PO SCH (09:56)
[2017-05-31] MEDS: CLOPIDOGREL BISULFATE 75 MG TABLET PO SCH (09:57)
[2017-05-31] MEDS: DOCUSATE SODIUM 100 MG CAPSULE PO SCH ×2 (09:57→18:22)
[2017-05-31] MEDS: AMLODIPINE BESYLATE 10 MG TABLET PO SCH (09:57)
[2017-05-31] MEDS: CYCLOBENZAPRINE HCL 10 MG TABLET PO SCH ×2 (09:58→21:14)
[2017-05-31] MEDS: ACETAMINOPHEN 325 MG TABLET PO PRN (18:22)
[2017-05-31] MEDS: MONTELUKAST SODIUM 10 MG TABLET PO SCH (18:22)
[2017-05-31] MEDS: AMITRIPTYLINE HCL 10 MG TABLET PO SCH (21:13)
[2017-05-31] MEDS: FINASTERIDE 5 MG TABLET PO SCH (21:13)
[2017-05-31] MEDS: DOXAZOSIN MESYLATE 4 MG TABLET PO SCH (21:14)
[2017-05-31] MEDS: ATORVASTATIN CALCIUM 40 MG TABLET PO SCH (21:14)
--- NOTE | 2017-05-31 21:19 | PDOC PROGRESS REPORT ---
Subjective Progress Note for:: 05/31/17 Subjective:: States she is feeling a lot better No respiratory distress no chest pains alert and awake Patient has a known history of COPD was diagnosed with a pneumonia Currently on Levaquin and nebs and steroids Reason For Visit: COPD EXACERBATION Physical Exam Vital Signs: Temp Pulse Resp BP Pulse Ox 97.7 F 86 16 129/54 H 93 05/31/17 15:19 05/31/17 15:19 05/31/17 15:19 05/31/17 15:19 05/31/17 15:19 Intake & Output 05/30/17 05/31/17 06/01/17 00:59 00:59 00:59 Intake Total 1550 462 Output Total 900 900 Balance 650 -438 Weight 84.397 kg General appearance: PRESENT: no acute distress, cooperative, well-developed, well-nourished Head exam: PRESENT: atraumatic, normocephalic Eye exam: PRESENT: conjunctiva pink, EOMI, PERRLA. ABSENT: scleral icterus Neck exam: ABSENT: carotid bruit, JVD, lymphadenopathy, thyromegaly Respiratory exam: PRESENT: decreased breath sounds, unlabored. ABSENT: accessory muscle use, rales Cardiovascular exam: PRESENT: RRR. ABSENT: diastolic murmur, rubs, systolic murmur GI/Abdominal exam: PRESENT: normal bowel sounds, soft. ABSENT: distended, guarding, mass, organolmegaly, rebound, tenderness Rectal exam: PRESENT: deferred Extremities exam: PRESENT: full ROM. ABSENT: calf tenderness, clubbing, pedal edema Neurological exam: PRESENT: alert, awake, oriented to person, oriented to place , oriented to time, oriented to situation, CN II-XII grossly intact. ABSENT: motor sensory deficit Results Laboratory Results: 05/31/17 05:48 05/31/17 05:48 Sodium 142.7 Potassium 4.7 Chloride 102 Carbon Dioxide 26 Anion Gap 15 BUN 46 H Creatinine 1.15 Est GFR ( Amer) > 60 Est GFR (Non-Af Amer) > 60 Glucose 148 H Calcium 9.2 Magnesium 2.2 Impressions: Chest X-Ray 05/30/17 08:32 IMPRESSION: PROBABLE BILATERAL LOWER LOBE PNEUMONIA SUPERIMPOSED ON CHRONIC LUNG DISEASE. Assessment & Plan - Diagnosis (1) Pneumonia Qualifiers: Pneumonia type: due to unspecified organism Laterality: bilateral Lung location: lower lobe of lung Qualified Code(s): J18.1 - Lobar pneumonia, unspecified organism Is this a current diagnosis for this admission?: Yes Plan: Continue Levaquin Pneumonia was present on admission (2) COPD with exacerbation Is this a current diagnosis for this admission?: Yes Plan: Continue nebs and steroids (3) Acute hypoxemic respiratory failure Is this a current diagnosis for this admission?: Yes Plan: Secondary to COPD exacerbation and pneumonia ; continue present management - Time Time Spent with patient: 25-34 minutes - Inpatient Certification Based on my medical assessment, after consideration of the patient's comorbidities, presenting symptoms, or acuity I expect that the services needed warrant INPATIENT care.: Yes I certify that my determination is in accordance with my understanding of Medicare's requirements for reasonable and necessary INPATIENT services [42 CFR 412.3e].: Yes Medical Necessity: Need For IV Fluids, Need For Continuous Telemetry Monitoring , Need for IV Antibiotics
[2017-06-01] MEDS: LEVALBUTEROL HCL NEB 1.25 MG/3 ML AMPUL NEB SCH ×4 (01:58→19:56)
[2017-06-01] MEDS: HYDROCODONE/ACETAMINOPHEN 5-325 MG TABLET PO PRN ×3 (02:39→21:35)
[2017-06-01] MEDS: LANSOPRAZOLE 30 MG TAB.RAP.DR PO SCH (05:03)
[2017-06-01] MEDS: LEVOTHYROXINE SODIUM 0.025 MG TABLET PO SCH (05:04)
[2017-06-01] MEDS: METHYLPREDNISOLONE INJ 40 MG/1 ML SDV IV SCH ×2 (05:04→14:13)
[2017-06-01] MEDS: HEPARIN SOD (PORCINE) 5,000 UNIT/ML 1 ML SYRINGE SUBCUT SCH ×3 (05:05→21:35)
[2017-06-01] MEDS: GUAIFENESIN 600 MG TABLET.SA PO SCH ×2 (09:11→21:34)
[2017-06-01] MEDS: LEVOFLOXACIN 750 MG TABLET PO SCH (09:11)
[2017-06-01] MEDS: CETIRIZINE 10 MG TABLET PO SCH (09:11)
[2017-06-01] MEDS: CYCLOBENZAPRINE HCL 10 MG TABLET PO SCH ×2 (09:11→21:38)
[2017-06-01] MEDS: HYDRALAZINE HCL 25 MG TABLET PO SCH ×2 (09:11→21:35)
[2017-06-01] MEDS: DOCUSATE SODIUM 100 MG CAPSULE PO SCH ×2 (09:11→18:28)
[2017-06-01] MEDS: BUDESONIDE/FORMOTEROL 80-4.5 MCG 60 PUFF/6.9 GM MDI IH SCH ×2 (09:11→21:37)
[2017-06-01] MEDS: CLOPIDOGREL BISULFATE 75 MG TABLET PO SCH (09:11)
[2017-06-01] MEDS: AMLODIPINE BESYLATE 10 MG TABLET PO SCH (09:11)
--- NOTE | 2017-06-01 15:31 | PDOC PROGRESS REPORT ---
Subjective Progress Note for:: 06/01/17 Subjective:: Patient was admitted with difficulty breathing thought to be secondary to COPD as well as pneumonia. It appears he has improved on bronchodilators as well as steroids and Levaquin. Patient however is apparently having some hallucinations and appears to be a little bit confused as per nursing report. Will discontinue his Levaquin antibiotic steroids as this may be contributing to psychosis. Reason For Visit: COPD EXACERBATION Physical Exam Vital Signs: Temp Pulse Resp BP Pulse Ox 98.5 F 78 16 152/68 H 93 06/01/17 11:27 06/01/17 13:38 06/01/17 13:38 06/01/17 11:27 06/01/17 13:38 Intake & Output 05/31/17 06/01/17 06/02/17 06:59 06:59 06:59 Intake Total 1812 632 Output Total 1600 200 Balance 212 432 Weight 84.397 kg 84.3 kg General appearance: PRESENT: no acute distress, well-developed Head exam: PRESENT: atraumatic Eye exam: PRESENT: conjunctiva pink, EOMI, PERRLA. ABSENT: scleral icterus Neck exam: ABSENT: carotid bruit, JVD, lymphadenopathy, thyromegaly Respiratory exam: PRESENT: clear to auscultation nicko, decreased breath sounds, unlabored. ABSENT: rales, rhonchi, wheezes Cardiovascular exam: PRESENT: RRR. ABSENT: diastolic murmur, rubs, systolic murmur Pulses: PRESENT: normal dorsalis pedis pul GI/Abdominal exam: PRESENT: normal bowel sounds, soft. ABSENT: distended, guarding, mass, organolmegaly, rebound, tenderness Rectal exam: PRESENT: deferred Musculoskeletal exam: PRESENT: ambulatory Neurological exam: PRESENT: alert, awake, oriented to person, oriented to place , oriented to time, oriented to situation, reflexes normal Psychiatric exam: PRESENT: appropriate affect Results Laboratory Results: 05/31/17 05:48 05/30/17 13:10 Clean Catch Midstream Urine Culture - Final NO GROWTH 2 DAYS Impressions: Chest X-Ray 05/30/17 08:32 IMPRESSION: PROBABLE BILATERAL LOWER LOBE PNEUMONIA SUPERIMPOSED ON CHRONIC LUNG DISEASE. Assessment & Plan - Time Time Spent with patient: 15-24 minutes Medications reviewed and adjusted accordingly: Yes Anticipated discharge: Home Within: within 48 hours - Inpatient Certification Based on my medical assessment, after consideration of the patient's comorbidities, presenting symptoms, or acuity I expect that the services needed warrant INPATIENT care.: Yes Medical Necessity: Need for Nebulizer Therapy and Monitoring of Response, Need for IV Antibiotics - Plan Summary Plan Summary: 1. Pneumonia bilateral due to unspecified organism. We will switch his antibiotics from Levaquin due to apparent psychosis 2. COPD with acute exacerbation improved. We will taper steroids 3. Acute hypoxemic respiratory failure secondary to numbers 201 above improved 4. Anxiety and hallucinations possibly iatrogenic.
[2017-06-01] MEDS: MONTELUKAST SODIUM 10 MG TABLET PO SCH (18:29)
--- NOTE | 2017-06-01 20:02 | XCELERA REPORT ---
[address] [address] Transthoracic Echocardiogram Report Name: JADEN PAIZ Age: 72 yrs Gender: Male : 1945 Patient Status: Inpatient Patient Location: [address] [place] [address] Study Date: 06/01/2017 08:41 AM Height: 72 in Weight: 188 lb BSA: 2.1 m2 Procedure: A complete two-dimensional transthoracic echocardiogram was performed (2D, M-mode, spectral and color flow Doppler). The study was technically difficult with many images being suboptimal in quality. Reason For Study: edema, BNP, dyspnea Ordering Physician: CÉSAR KENNEY Performed By: Norma Leija Interpretation Summary Left ventricular systolic function is normal. There is borderline concentric left ventricular hypertrophy. The left ventricle is grossly normal size. LV diastolic function not assessed. Wall motion cannot be accurately commented on, but no definite regional wall motion abnormalities noted. The right ventricular systolic function is normal. The right atrium is normal in size The left atrial size is normal. There is no mitral valve stenosis. There is no mitral regurgitation noted. No aortic regurgitation is present. There is no aortic valve stenosis There is no tricuspid stenosis. No tricuspid regurgitation. The aortic root is not well visualized but is probably normal size. The inferior vena cava appeared normal and decreased < 50% with respiration (RAP 10-15 mmHg) Minimal pericardial effusion. MMode/2D Measurements & Calculations RVDd: 2.4 cm LVIDd: 5.5 cm FS: 32.1 % Ao root diam: 3.1 cm IVSd: 0.93 cm LVIDs: 3.7 cm EDV(Teich): 145.5 ml LVPWd: 0.98 cm ESV(Teich): 58.7 ml Ao root area: 7.5 cm2 EF(Teich): 59.7 % Doppler Measurements & Calculations MV E max vimal: MV dec slope: Ao V2 max: LV V1 max P.3 cm/sec 142.9 cm/sec 4.5 mmHg MV A max vimal: 804.0 cm/sec2 Ao max PG: LV V1 max: 111.6 cm/sec MV dec time: 8.2 mmHg 105.5 cm/sec MV E/A: 1.2 0.16 sec PA V2 max: 115.5 cm/sec PA max P.3 mmHg Left Ventricle The left ventricle is grossly normal size. There is borderline concentric left ventricular hypertrophy. Left ventricular systolic function is normal. LV diastolic function not assessed. Wall motion cannot be accurately commented on, but no definite regional wall motion abnormalities noted. Right Ventricle The right ventricle is grossly normal size. There is normal right ventricular wall thickness. The right ventricular systolic function is normal. Atria The right atrium is normal in size. The left atrial size is normal. Interarterial septum not well visualized and not well dopplered. Cannot comment on ASD/PFO presence. Mitral Valve The mitral valve is grossly normal. There is no mitral valve stenosis. There is no mitral regurgitation noted. Aortic Valve The aortic valve is grossly normal. There is no aortic valve stenosis. No aortic regurgitation is present. Tricuspid Valve The tricuspid valve is not well visualized secondary to technical limitations. There is no tricuspid stenosis. No tricuspid regurgitation. Pulmonic Valve The pulmonic valve is not well visualized. Great Vessels The aortic root is not well visualized but is probably normal size. The inferior vena cava appeared normal and decreased < 50% with respiration (RAP 10-15 mmHg). Effusions Minimal pericardial effusion. : CÉSAR KENNEY > Stephanie Rodriguez
[2017-06-01] MEDS: ALPRAZOLAM 0.5 MG TABLET PO PRN (21:33)
[2017-06-01] MEDS: DOXAZOSIN MESYLATE 4 MG TABLET PO SCH (21:34)
[2017-06-01] MEDS: ATORVASTATIN CALCIUM 40 MG TABLET PO SCH (21:36)
[2017-06-01] MEDS: AMITRIPTYLINE HCL 10 MG TABLET PO SCH (21:36)
[2017-06-01] MEDS: FINASTERIDE 5 MG TABLET PO SCH (21:39)
[2017-06-02] MEDS: LEVALBUTEROL HCL NEB 1.25 MG/3 ML AMPUL NEB SCH ×2 (01:13→09:21)
[2017-06-02 05:26] LABS: HEMATOCRIT 34.3 % (37.9-51.0); HEMOGLOBIN 11.7 g/dL (13.5-17.0); MEAN CORPUSCULAR HEMOGLOBIN 29.9 pg (27.0-33.4); MEAN CORPUSCULAR HGB CONC 34.1 g/dL (32.0-36.0); MEAN CORPUSCULAR VOLUME 88 fl (80-97); PLATELET COUNT 272 10^3/uL (150-450); RED BLOOD COUNT 3.91 10^6/uL (4.35-5.55); RED CELL DISTRIBUTION WIDTH 14.6 % (11.5-14.0); WHITE BLOOD COUNT 9.5 10^3/uL (4.0-10.5)
[2017-06-02 05:46] LABS: ANION GAP 10 (5-19); BLOOD UREA NITROGEN 40 mg/dL (7-20); CALCIUM 9.2 mg/dL (8.4-10.2); CARBON DIOXIDE 27 mmol/L (22-30); CHLORIDE 106 mmol/L (98-107); GLUCOSE 81 mg/dL (75-110); POTASSIUM 4.6 mmol/L (3.6-5.0); SODIUM 142.9 mmol/L (137-145)
[2017-06-02] MEDS ORDERED: CEFUROXIME 500 MG TABLET PO SCH (06:00)
[2017-06-02 06:01] LABS: ABSOLUTE LYMPHOCYTES# (MANUAL) 1.5 10^3/uL (0.5-4.7); ABSOLUTE MONOCYTES # (MANUAL) 0.5 10^3/uL (0.1-1.4); ABSOLUTE NEUTROPHILS# (MANUAL) 7.4 10^3/uL (1.7-8.2); BASOPHILS % (MANUAL) 0 % (0-2); EOSINOPHILS % (MANUAL) 1 % (0-6); LYMPHOCYTES % (MANUAL) 16 % (13-45); MONOCYTES % (MANUAL) 5 % (3-13); SEGMENTED NEUTROPHILS % (MAN) 78 % (42-78); TOTAL CELLS COUNTED 100
[2017-06-02 06:02] LABS: PLATELET COMMENT ADEQUATE
[2017-06-02 06:04] LABS: ANISOCYTOSIS SLIGHT
[2017-06-02] MEDS: ALPRAZOLAM 0.5 MG TABLET PO PRN (06:22)
[2017-06-02] MEDS: LANSOPRAZOLE 30 MG TAB.RAP.DR PO SCH (06:22)
[2017-06-02] MEDS: HEPARIN SOD (PORCINE) 5,000 UNIT/ML 1 ML SYRINGE SUBCUT SCH (06:23)
[2017-06-02] MEDS: LEVOTHYROXINE SODIUM 0.025 MG TABLET PO SCH (06:23)
[2017-06-02] MEDS: HYDROCODONE/ACETAMINOPHEN 5-325 MG TABLET PO PRN (08:29)
[2017-06-02] MEDS ORDERED: PREDNISONE 20 MG TABLET PO SCH (10:00)
[2017-06-02] MEDS: BUDESONIDE/FORMOTEROL 80-4.5 MCG 60 PUFF/6.9 GM MDI IH SCH (10:32)
[2017-06-02] MEDS: HYDRALAZINE HCL 25 MG TABLET PO SCH (10:33)
[2017-06-02] MEDS: GUAIFENESIN 600 MG TABLET.SA PO SCH (10:33)
[2017-06-02] MEDS: CLOPIDOGREL BISULFATE 75 MG TABLET PO SCH (10:33)
[2017-06-02] MEDS: CETIRIZINE 10 MG TABLET PO SCH (10:33)
[2017-06-02] MEDS: DOCUSATE SODIUM 100 MG CAPSULE PO SCH (10:34)
[2017-06-02] MEDS: AMLODIPINE BESYLATE 10 MG TABLET PO SCH (10:34)
[2017-06-02] MEDS: CYCLOBENZAPRINE HCL 10 MG TABLET PO SCH (10:34)
--- NOTE | 2017-06-02 11:39 | RADIOLOGY REPORT (SQ) ---
EXAM DESCRIPTION: CT HEAD WITHOUT COMPLETED DATE/TIME: 06/02/2017 11:03 am REASON FOR STUDY: assess for stroke/ muscle spasms COMPARISON: None. TECHNIQUE: Axial images acquired through the brain without intravenous contrast. Images reviewed wi th bone, brain and subdural windows. Additional sagittal and coronal reconstructions were generated. Images stored on PACS. All CT scanners at this facility use dose modulation, iterative reconstruction, and/or weight based d osing when appropriate to reduce radiation dose to as low as reasonably achievable (ALARA). [facility]: Dose Right [facility]: CareDose [facility]: Dose Right [facility]: Teradose 4D [facility]: Exelonix RADIATION DOSE: CT Rad equipment meets quality standard of care and radiation dose reduction techniq ues were employed. CTDIvol: 48.6 mGy. DLP: 953 mGy-cm. mGy. LIMITATIONS: None. FINDINGS: VENTRICLES: Normal size and contour. CEREBRUM: Old right MCA distribution infarct involving the insular cortex and right frontal perisylvi an white matter and cortex. No CT evidence of acute intracranial hemorrhage, mass effect, or midline shift. CEREBELLUM: No masses. No hemorrhage. No alteration of density. No evidence for acute infarction. EXTRAAXIAL SPACES: No fluid collections. No masses. ORBITS AND GLOBE: No intra- or extraconal masses. Normal contour of globe without masses. CALVARIUM: No fracture. PARANASAL SINUSES: No fluid or mucosal thickening. SOFT TISSUES: No mass or hematoma. OTHER: No other significant finding. IMPRESSION: Old right MCA distribution infarct No acute findings EVIDENCE OF ACUTE STROKE: NO. COMMENT: Quality ID # [id number]: Final reports with documentation of one or more dose reduction techniques (e.g., Automated exposure control, adjustment of the mA and/or kV according to patient size, use of iterative reconstruction technique) TECHNICAL DOCUMENTATION: JOB ID: [id number] [employer]- All Rights Reserved Reading location - IP/workstation name: [email or web address]
[2017-06-02 11:57] VITALS: BP 138/79
--- NOTE | 2017-06-02 19:29 | PDOC DISCHARGE SUMMARY ---
General - Admit/Disc Date/PCP Admission Date/Primary Care Provider: 05/30/17 10:23 Discharge Date: 06/02/17 - Discharge Diagnosis (1) Acute hypoxemic respiratory failure Is this a current diagnosis for this admission?: Yes (2) COPD with exacerbation Is this a current diagnosis for this admission?: Yes (3) Chronic pain requiring opiod analgesia Is this a current diagnosis for this admission?: Yes (4) Coronary artery disease Is this a current diagnosis for this admission?: Yes (5) Pneumonia Is this a current diagnosis for this admission?: Yes (6) Left against medical advice Is this a current diagnosis for this admission?: Yes - Additional Information Home Medications: Albuterol Sulfate [Albuterol Sulfate 2.5mg/3 mL] 1 vial IH Q4HP PRN 05/30/17 Albuterol Sulfate [Proair Hfa Inhalation Aerosol 8.5 gm Mdi] 2 puff IH Q4HP PRN 05/30/17 Amitriptyline HCl [Elavil 10 Mg Tablet] 20 mg PO QHS 05/30/17 Atorvastatin Calcium [Lipitor 80 mg Tablet] 40 mg PO QHS 05/30/17 Budesonide/Formoterol Fumarate [Symbicort 80-4.5 Mcg Inhaler] 2 puff IH Q12 Cetirizine HCl [Zyrtec 10 mg Tablet] 10 mg PO DAILY 05/30/17 Clopidogrel Bisulfate [Plavix 75 mg Tablet] 75 mg PO DAILY 05/30/17 Cyclobenzaprine HCl [Flexeril 5 mg Tablet] 5 mg PO Q12 05/30/17 Finasteride [Proscar 5 mg Tablet] 5 mg PO QHS 05/30/17 Hydrocodone/Acetaminophen [[place] 5-325 mg Tablet] 1 tab PO TIDP PRN 05/30/17 Levothyroxine Sodium [Synthroid 0.025 mg Tablet] 0.025 mg PO DAILY 05/30/17 Pantoprazole Sodium [Protonix] 40 mg PO DAILY 05/30/17 Terazosin HCl [Hytrin] 4 mg PO QHS 05/30/17 History of Present Illness History of Present Illness: JADEN PAIZ is a 72 year old male Admitted with difficulty breathing and shortness of breath and found to have pneumonia with COPD exacerbation. Hospital Course Hospital Course: Patient was being treated with antibiotics and steroids and he appeared to be making some improvement. Was felt that patient will need home oxygen as he remained hypoxemic. Patient however decided against staying for further management and he signed out AGAINST MEDICAL ADVICE despite admonitions not to do so. Physical Exam Vital Signs: Temp Pulse Resp BP Pulse Ox 97.5 F 88 18 138/79 H 95 06/02/17 11:15 06/02/17 11:15 06/02/17 11:15 06/02/17 11:15 06/02/17 11:15 Intake & Output 06/01/17 06/02/17 06/03/17 06:59 06:59 06:59 Intake Total 632 980 Output Total 200 950 Balance 432 30 Weight 84.3 kg 84.3 kg Results Laboratory Results: 06/02/17 04:40 06/02/17 04:40 06/02/17 06/02/17 04:40 04:40 WBC 9.5 RBC 3.91 L Hgb 11.7 L Hct 34.3 L MCV 88 MCH 29.9 MCHC 34.1 RDW 14.6 H Plt Count 272 Seg Neutrophils % Not Reportable Lymphocytes % Not Reportable Monocytes % Not Reportable Eosinophils % Not Reportable Basophils % Not Reportable Absolute Neutrophils Not Reportable Absolute Lymphocytes Not Reportable Absolute Monocytes Not Reportable Absolute Eosinophils Not Reportable Absolute Basophils Not Reportable Sodium 142.9 Potassium 4.6 Chloride 106 Carbon Dioxide 27 Anion Gap 10 BUN 40 H Creatinine 0.98 Est GFR ( Amer) > 60 Est GFR (Non-Af Amer) > 60 Glucose 81 Calcium 9.2 Impressions: Chest X-Ray 05/30/17 08:32 IMPRESSION: PROBABLE BILATERAL LOWER LOBE PNEUMONIA SUPERIMPOSED ON CHRONIC LUNG DISEASE. Head CT 06/02/17 00:00 IMPRESSION: Old right MCA distribution infarct No acute findings EVIDENCE OF ACUTE STROKE: NO. Qualifiers - * PATIENT BEING DISCHARGED WITH ANY OF THE FOLLOWING DIAGNOSIS: No
== END 2017-06-02 14:00 | disposition left against medical advice (07) | DRG 189 ==
LOC: ER 08:31 → EH 10:23 → 4W 12:20
PROVIDERS: ADMIT Internal Medicine; ATTEND Internal Medicine
DX: J96.21 Acute and chronic respiratory failure with hypoxia (principal); J18.9 Pneumonia, unspecified organism; F11.20 Opioid dependence, uncomplicated; N17.9 Acute kidney failure, unspecified; J44.1 Chronic obstructive pulmonary disease with (acute) exacerbation; Z66 Do not resuscitate; I25.10 Atherosclerotic heart disease of native coronary artery without angina pectoris; E78.5 Hyperlipidemia, unspecified; I10 Essential (primary) hypertension; K21.9 Gastro-esophageal reflux disease without esophagitis; N40.0 Benign prostatic hyperplasia without lower urinary tract symptoms; E03.9 Hypothyroidism, unspecified; Z87.891 Personal history of nicotine dependence; Z95.5 Presence of coronary angioplasty implant and graft
CPT/HCPCS: 36415; 70450; 71045; 80048; 80053; 81001; 82803; 83605; 83735; 83880; 85025; 85610; 87040; 87086; 93005; 93010; 93306; 94640; 94667; 94668; 94799; 96365; 99285; J1644; J1956; J2920; J3490; J7030; J7512; J7620

== ENCOUNTER 2017-11-07 11:47 | Emergency (ER) | payer MEDICARE, OTHER ==
[2017-11-07 11:53] VITALS: BP 142/76
--- NOTE | 2017-11-07 12:30 | ER Document Report ---
ED Medical Screen (RME) - General Chief Complaint: Blood Pressure Problem Stated Complaint: BLOOD PRESSURE ISSUES Time Seen by Provider: 11/07/17 12:26 Mode of Arrival: Ambulatory Information source: Patient Notes: This is a 72-year-old gentleman with a history of hypertension and COPD who presents to the emergency room with complaints of elevated blood pressure. Patient states that sometimes his blood pressure is 90/60 and at other times his blood pressure is 180 systolic. He last saw his doctor at the [place] 4 days ago. He states that he has had some nausea but denies chest pain or abdominal pain. He does report that he has a lot of gas and that he has always had gas and is requesting some medicine for this. On more in-depth interview with him as well as his family member: The patient will hold his blood pressure medicine (losartan) if his blood pressure is less than 140. He will sometimes take his blood pressure medicine at night and find out that his blood pressure is low the following morning. He is on terazosin at night as well. TRAVEL OUTSIDE OF THE [place] IN LAST 30 DAYS: No COUNTRY TRAVELED TO/FROM: [facility] Onset: Last week Onset/Duration: Gradual Quality of pain: No pain Severity: None Pain Level: Denies Associated Symptoms: denies: Chest pain, Shortness of breath Exacerbated by: Denies Relieved by: Denies Similar symptoms previously: Yes Recently seen / treated by doctor: Yes - Related Data Smoking: Non-smoker, Quit greater than 1 year Frequency of alcohol use: None Drug Abuse: None Allergies/Adverse Reactions: Sulfa (Sulfonamide Antibiotics) Allergy (Verified 11/07/17 11:48) Past Medical History - General Information source: Patient - Social History Cigarette use (# per day): No Chew tobacco use (# tins/day): No Frequency of alcohol use: None Drug Abuse: None Lives with: Alone Family history: None - Past Medical History Cardiac Medical History: Reports: Hx Coronary Artery Disease - stenting of the LAD rhythm 2 years ago, f/u cardiac stress testing neg., Hx Hypercholesterolemia , Hx Hypertension Pulmonary Medical History: Reports: Hx COPD Renal/ Medical History: Denies: Hx Peritoneal Dialysis GI Medical History: Reports: Hx Gastroesophageal Reflux Disease Past Surgical History: Reports: Hx Cardiac Catheterization - stent placement; carotid artery, Hx Orthopedic Surgery - L shoulder - Immunizations Hx Diphtheria, Pertussis, Tetanus Vaccination: No Review of Systems - Review of Systems Constitutional: denies: Chills, Fever EENT: No symptoms reported Cardiovascular: See HPI. denies: Chest pain, Palpitations, Heart racing Respiratory: denies: Cough, Short of breath, Wheezing Gastrointestinal: See HPI Genitourinary: No symptoms reported Male Genitourinary: No symptoms reported Musculoskeletal: No symptoms reported Skin: No symptoms reported Hematologic/Lymphatic: No symptoms reported Neurological/Psychological: No symptoms reported Physical Exam - Vital signs Vitals: Temp Pulse Resp BP Pulse Ox 97.5 F 75 17 142/76 H 98 11/07/17 11:52 11/07/17 11:52 11/07/17 11:52 11/07/17 11:52 11/07/17 11:52 Notes: Physical exam: GENERAL: 72-year-old male alert and oriented x3, blood pressure 141/76 HEAD: Atraumatic, normocephalic. EYES: Pupils equal round and reactive to light, extraocular movements intact, sclera anicteric, conjunctiva are normal. ENT: TMs normal, nares patent, oropharynx clear without exudates. Moist mucous membranes. NECK: Normal range of motion, supple without obvious mass or JVD. LUNGS: Breath sounds clear to auscultation bilaterally and equal. No wheezes rales or rhonchi. HEART: Regular rate and rhythm without murmurs, rubs or gallops. ABDOMEN: Soft, normoactive bowel sounds. No tenderness to palpation. No guarding, no rebound. No masses appreciated. EXTREMITIES: Normal range of motion, no pitting or edema. No clubbing or cyanosis. NEUROLOGICAL: Cranial nerves II through XII grossly intact. Normal speech, moving all extremities. PSYCH: Normal mood, normal affect. SKIN: Warm, Dry, normal turgor, no rashes or lesions noted. Course - Re-evaluation Re-evalutation: 11/07/17 12:42 I had a long conversation with the patient and family member. He has created a diary with his blood pressure and reviewed with the primary care physician but notes that there was no obvious relationship with times of the day and blood pressure and it was widely fluctuating. However, the patient does not take his blood pressure medicine regularly and will often withhold it and take it at various times of the day. I have discussed with him this is like trying to shoot a moving target. I have advised him not to take the losartan at night because he is already taking Terazosin and and the combination can lead to a low blood pressure in the morning (which he has experienced). I have tried to explain to him that blood pressure medicine is a medicine that is normally taken at the same time every day. He will take it at 9 in the morning unless he feels that the blood pressure is too low (less than a systolic of 120). He will to recheck it a few hours later if he is not taken it and if it is above 120 he will take it. I have advised him to follow-up with his doctor this week. - Vital Signs Vital signs: Temp Pulse Resp BP Pulse Ox 97.5 F 75 17 142/76 H 98 11/07/17 11:52 11/07/17 11:52 11/07/17 11:52 11/07/17 11:52 11/07/17 11:52 Doctor's Discharge - Discharge Clinical Impression: Hypertension Condition: Stable Disposition: HOME, SELF-CARE Additional Instructions: As we discussed, 1. If your systolic blood pressure (the top number) is less than 120 in the morning: Do not take your blood pressure medicine. Recheck in 3 hours. After rechecking, if the systolic blood pressure is 120 or greater: Take your blood pressure medicine. 2. Avoid taking the Losartan (blood pressure medicine) at night. You already take a medicine called Terazosin at night for prostate enlargement and this medicine will lower your blood pressure. Taking them both together can cause a low blood pressure in the morning. Follow-up with your primary care doctor as planned. Prescriptions: Simethicone 180 mg PO BID #30 capsule
== END 2017-11-07 12:26 | disposition home or self-care (01) ==
LOC: ER 11:47
DX: I10 Essential (primary) hypertension (principal); Z91.14 Patient's other noncompliance with medication regimen; J44.9 Chronic obstructive pulmonary disease, unspecified; R11.0 Nausea; R14.3 Flatulence; I25.10 Atherosclerotic heart disease of native coronary artery without angina pectoris; Z79.899 Other long term (current) drug therapy; Z87.891 Personal history of nicotine dependence; Z88.2 Allergy status to sulfonamides; Z95.5 Presence of coronary angioplasty implant and graft
CPT/HCPCS: 99283

== ENCOUNTER 2018-05-11 13:05 | Emergency (ER) | payer OTHER ==
[2018-05-11 13:47] LABS: ABSOLUTE BASOPHILS # (AUTO) 0.1 10^3/uL (0.0-0.2); ABSOLUTE EOSINOPHILS # (AUTO) 0.1 10^3/uL (0.0-0.6); ABSOLUTE LYMPHOCYTES (AUTO) 0.7 10^3/uL (0.5-4.7); ABSOLUTE MONOCYTES (AUTO) 0.4 10^3/uL (0.1-1.4); ABSOLUTE NEUT (AUTO) 5.3 10^3/uL (1.7-8.2); EOSINOPHILS % (AUTO) 1.4 % (0-6); HEMATOCRIT 38.1 % (37.9-51.0); LYMPHOCYTES % (AUTO) 10.5 % (13-45); MEAN CORPUSCULAR HEMOGLOBIN 30.3 pg (27.0-33.4); MEAN CORPUSCULAR HGB CONC 34.2 g/dL (32.0-36.0); MEAN CORPUSCULAR VOLUME 89 fl (80-97); PLATELET COUNT 166 10^3/uL (150-450); RED CELL DISTRIBUTION WIDTH 14.2 % (11.5-14.0); SEGMENTED NEUTROPHILS % (AUTO) 81.1 % (42-78); TOTAL CELLS COUNTED % (AUTO) 100 %; WHITE BLOOD COUNT 6.6 10^3/uL (4.0-10.5)
[2018-05-11 14:04] LABS: ALANINE AMINOTRANSFERASE 31 U/L (21-72); ALBUMIN 4.2 g/dL (3.5-5.0); ALKALINE PHOSPHATASE 76 U/L (38-126); ANION GAP 8 (5-19); ASPARTATE AMINO TRANSFERASE 28 U/L (17-59); BILIRUBIN,DIRECT 0.3 mg/dL (0.0-0.4); BILIRUBIN,TOTAL 0.4 mg/dL (0.2-1.3); BLOOD UREA NITROGEN 20 mg/dL (7-20); CARBON DIOXIDE 28 mmol/L (22-30); CHLORIDE 102 mmol/L (98-107); CREATINE KINASE 328 U/L (55-170); GLUCOSE 129 mg/dL (75-110); SODIUM 138.4 mmol/L (137-145); TOTAL PROTEIN 7.3 g/dL (6.3-8.2)
--- NOTE | 2018-05-11 14:14 | RADIOLOGY REPORT (SQ) ---
EXAM DESCRIPTION: CHEST SINGLE VIEW COMPLETED DATE/TIME: 05/11/2018 1:56 pm REASON FOR STUDY: shortness of breath COMPARISON: 03/11/2016 and 12/12/2012. EXAM PARAMETERS: NUMBER OF VIEWS: One view. TECHNIQUE: Single frontal radiographic view of the chest acquired. RADIATION DOSE: NA LIMITATIONS: None. FINDINGS: LUNGS AND PLEURA: Chronic elevation of the left hemidiaphragm with chronic scarring in the left base. No infiltrates, masses or pneumothorax. No pleural effusion. MEDIASTINUM AND HILAR STRUCTURES: No masses. Contour normal. HEART AND VASCULAR STRUCTURES: Heart normal in size. Normal vasculature. BONES: No acute findings. Numerous old rib fractures on the left. HARDWARE: None in the chest. OTHER: No other significant finding. IMPRESSION: STABLE CHRONIC CHANGES. NO ACUTE RADIOGRAPHIC FINDING IN THE CHEST. TECHNICAL DOCUMENTATION: JOB ID: [id number] [employer]- All Rights Reserved Reading location - IP/workstation name: [email or web address]
[2018-05-11 14:15] LABS: CREATINE KINASE MB 6.69 ng/mL (<4.55)
[2018-05-11 14:20] LABS: TROPONIN I < 0.012 ng/mL
--- NOTE | 2018-05-11 14:46 | ER Document Report ---
ED General - General Chief Complaint: Breathing Difficulty Stated Complaint: DIFFICULTY BREATHING Time Seen by Provider: 05/11/18 13:29 Primary Care Provider: [facility] [Provider Group] - 05/12/18 Notes: Patient is a 73-year-old male who presents emergency department with a chief complaint of shortness of breath. He states that his symptoms started 2-3 days ago and he has progressively gotten worse. He states that he is had sinus infections before, which later progressed to pneumonia. He feels like this is similar. He denies any fever, nausea, vomiting, chest pain, or diarrhea. Adamantly states that this does not feel like when he had his NV 8 years ago. He does admit to having nasal congestion. Admits to postnasal drip. His past medical history includes COPD, hypertension, cardiac stent placement 8 years ago, and stroke in 2004. He does wear oxygen periodically at home. TRAVEL OUTSIDE OF THE [place] IN LAST 30 DAYS: No COUNTRY TRAVELED TO/FROM: [place] - Related Data Allergies/Adverse Reactions: Sulfa (Sulfonamide Antibiotics) Allergy (Verified 05/11/18 13:06) Past Medical History - Social History Smoking Status: Former Smoker Family History: COPD Patient has suicidal ideation: No Patient has homicidal ideation: No - Past Medical History Cardiac Medical History: Reports: Hx Coronary Artery Disease - stenting of the LAD rhythm 2 years ago, f/u cardiac stress testing neg., Hx Hypercholesterolemia, Hx Hypertension Pulmonary Medical History: Reports: Hx COPD Renal/ Medical History: Denies: Hx Peritoneal Dialysis GI Medical History: Reports: Hx Gastroesophageal Reflux Disease Past Surgical History: Reports: Hx Cardiac Catheterization - stent placement; carotid artery, Hx Orthopedic Surgery - L shoulder - Immunizations Hx Diphtheria, Pertussis, Tetanus Vaccination: No Review of Systems - Review of Systems Notes: REVIEW OF SYSTEMS: CONSTITUTIONAL : Denies recent illness. Denies recent unintentional weight loss. Denies fever, chills, or sweats. EENT: See HPI CARDIOVASCULAR: Denies chest pain. RESPIRATORY: See HPI GASTROINTESTINAL: Denies nausea, vomiting, and diarrhea. Denies abdominal pain. Denies constipation. GENITOURINARY: Denies difficulty urinating, burning, blood in urine, urgency or frequency. MUSCULOSKELETAL: Denies neck and back pain. Denies joint pain or swelling. SKIN: Denies rash, itchiness, or lesions HEMATOLOGIC : Denies easy bruising or bleeding. LYMPHATIC: Denies swollen, painful, enlarged glands. NEUROLOGICAL: Denies no numbness or tingling denies weakness. Denies headache. Denies altered mental status. Denies alteration in speech. PSYCHIATRIC: Denies stress, anxiety, alteration in sleep patterns, or depression. All other systems reviewed and negative. Physical Exam - Vital signs Vitals: Temp Pulse Resp BP Pulse Ox 97.7 F 86 24 H 145/83 H 88 L 05/11/18 13:11 05/11/18 13:11 05/11/18 13:11 05/11/18 13:11 05/11/18 13:11 - Notes Notes: PHYSICAL EXAMINATION: GENERAL: Appears well, healthy, well-nourished, no acute distress. HEAD: Normocephalic, atraumatic. EYES: PERRL, conjunctiva normal, all extraocular movements intact, sclera nonicteric ENT: Moist mucous membranes. NECK: Supple, no noticeable swelling, redness, rash. Normal range of motion. LUNGS: Equal breath sounds bilaterally and clear to auscultation. No wheezes rales or rhonchi. CARDIOVASCULAR: S1-S2, regular rate, regular rhythm. Radial pulses 2+, normal. ABDOMEN: Normoactive bowel sounds. Soft, nontender, no guarding, no rebound tenderness, and no masses palpated. EXTREMITIES: Normal strength and range of motion, no pitting or edema. No cyanosis. NEUROLOGICAL: Moves all extremities upon command. Strength 5/5 in all extremities. PSYCH: Normal mood, normal affect. SKIN: Warm, dry. No rash, lesions, ulcerations noted. Normal skin turgor. Course - Re-evaluation Re-evalutation: 05/11/18 15:50 Patient has been off oxygen for the past 15-20 minutes and his oxygen saturation has been anywhere from 93-96% on room air. He is not hypoxic. Nontoxic in appearance. He will be sent home with azithromycin for a sinus infection. He states that he normally takes azithromycin and it helps with his sinuses. - Vital Signs Vital signs: Temp Pulse Resp BP Pulse Ox 99.2 F 86 20 140/78 H 92 05/11/18 16:05 05/11/18 13:11 05/11/18 16:04 05/11/18 16:05 05/11/18 16:05 - Laboratory Result Diagrams: 05/11/18 13:36 05/11/18 13:36 Laboratory results interpreted by me: 05/11/18 05/11/18 05/11/18 13:36 13:36 13:36 RBC 4.30 L Hgb 13.0 L RDW 14.2 H Seg Neutrophils % 81.1 H Lymphocytes % 10.5 L Glucose 129 H Creatine Kinase 328 H CK-MB (CK-2) 6.69 H - EKG Interpretation by Me Additional EKG results interpreted by me: 05/11/18 13:29 Sinus rhythm. Rate 82; IA 204; QRS 288; QT 388; QTC 448. Possible elevation in leads V1 and V2. We will repeat EKG in about 20 minutes. 05/11/18 14:16 Sinus rhythm. Rate 73. IA 176; QRS 90; QT 392; QTC 432. Leads V1 and V2 appear better in this EKG. No elevation noted. Discharge - Discharge Clinical Impression: Shortness of breath Sinusitis Qualifiers: Sinusitis location: frontal Chronicity: acute Recurrence: recurrent Qualified Code(s): J01.11 - Acute recurrent frontal sinusitis Condition: Stable Disposition: HOME, SELF-CARE Additional Instructions: You were seen today in the emergency department for shortness of breath. Please wear your oxygen as prescribed by your welcome wagon host/hostess. You do have a sinus infection. You have been given antibiotics. Your first dose was given here in the emergency department please finish your antibiotics as prescribed. Please make sure you stay well-hydrated drink plenty of water. Follow-up with your primary care provider in regards to this visit. If you have worsening symptoms, shortness of breath, or have any symptoms that are worrisome to you, please return to the emergency department. Prescriptions: Azithromycin [Zithromax 250 mg Tablet] 250 mg PO DAILY #4 tablet Referrals: [facility] [Provider Group] - 05/12/18
[2018-05-11] MEDS ORDERED: AZITHROMYCIN 250 MG TABLET PO ONE (15:55)
[2018-05-11 16:09] VITALS: BP 140/78
--- NOTE | 2018-05-11 18:42 | EKG REPORT ---
SEVERITY:- ABNORMAL ECG - SINUS RHYTHM LVH WITH SECONDARY REPOLARIZATION ABNORMALITY ANTERIOR Q WAVES, OLD ANTERIOR TN : Confirmed by: Hector Lara MD 11-May-2018 18:42:12
--- NOTE | 2018-05-11 18:43 | EKG REPORT ---
SEVERITY:- ABNORMAL ECG - SINUS RHYTHM LVH WITH SECONDARY REPOLARIZATION ABNORMALITY ANTERIOR Q WAVES, OLD ANTERIOR VT : Confirmed by: Hector Lara MD 11-May-2018 18:42:52
== END 2018-05-11 16:09 | disposition home or self-care (01) ==
LOC: ER 13:05
DX: J01.10 Acute frontal sinusitis, unspecified (principal); J44.9 Chronic obstructive pulmonary disease, unspecified; R06.02 Shortness of breath; I25.2 Old myocardial infarction; R09.81 Nasal congestion; R09.82 Postnasal drip; I25.10 Atherosclerotic heart disease of native coronary artery without angina pectoris; I10 Essential (primary) hypertension; Z87.01 Personal history of pneumonia (recurrent); Z95.5 Presence of coronary angioplasty implant and graft; Z86.73 Personal history of transient ischemic attack (TIA), and cerebral infarction without residual deficits; Z88.2 Allergy status to sulfonamides; Z87.891 Personal history of nicotine dependence
CPT/HCPCS: 36415; 71045; 80053; 82550; 82553; 84484; 85025; 93005; 93010; 99285

== ENCOUNTER → 2018-06-30 | Outpatient (CLI) | payer OTHER ==
--- NOTE | 2018-06-30 12:55 | RADIOLOGY REPORT (SQ) ---
EXAM DESCRIPTION: ARTERIAL LOWER EXTREM BILAT COMPLETED DATE/TIME: 06/30/2018 12:18 pm REASON FOR STUDY: ABSENCE OF PULSES/ PAIN R09.89 OTH SYMPTOMS AND SIGNS INVOLVING THE CIRC AND RESP SY COMPARISON: None. TECHNIQUE: Dynamic and static cohn scale and color images acquired of the lower extremity arteries. Additional selected spectral images recorded. ABIs recorded. LIMITATIONS: None. FINDINGS: RIGHT LEG: ABIS: 0.93 to 1.0 INFLOW ARTERIES: Normal, no obstruction evident. FEMORAL ARTERIES:Multiphasic waveforms. Elevated velocity proximal SFA 1.6 m/sec. Elevated velocity distal SFA 1.8 m/sec. POPLITEAL ARTERY:Multiphasic waveforms. Normal, no velocity elevation to suggest focal stenosis. Norm al color Doppler evaluation. No aneurysm. PATENT TIBIOPERONEAL TRUNK AND 3 VESSEL RUNOFF: Yes. TBI: Not performed. OTHER: No other significant finding. LEFT LEG: ABIS: 0.94 to 0.98 INFLOW ARTERIES: Normal, no obstruction evident. FEMORAL ARTERIES:Multiphasic waveforms. Normal, no velocity elevation to suggest focal stenosis. Norm al color Doppler evaluation. No aneurysm. POPLITEAL ARTERY:Multiphasic waveforms. Normal, no velocity elevation to suggest focal stenosis. Norm al color Doppler evaluation. No aneurysm. PATENT TIBIOPERONEAL TRUNK AND 3 VESSEL RUNOFF: Yes. TBI: Not performed. OTHER: No other significant finding. IMPRESSION: ABIs as above. Tandem <50% stenosis right SFA. COMMENT: ADELINE NORMAL: Greater than 1.0 MINIMAL DISEASE: 0.9 to 1.0 CLAUDICATION: 0.5 to 0.9 SEVERE ARTERIAL DISEASE: Less than 0.5 [facility] NORMAL: Greater than 1.0 (1.2 If Heavy Calcifications) NORMAL TO MILD ISCHEMIA: 0.8 to 1.0 MODERATE ISCHEMIA: 0.4 to 0.8 SEVERE ISCHEMIA: Less than 0.4 TECHNICAL DOCUMENTATION: JOB ID: [id number] [employer]- All Rights Reserved Reading location - IP/workstation name: [email or web address]
== END ==
LOC: SP 10:03
PROVIDERS: ATTEND Surgery
DX: R09.89 Other specified symptoms and signs involving the circulatory and respiratory systems (principal); M79.605 Pain in left leg; M79.604 Pain in right leg
CPT/HCPCS: 93925

== ENCOUNTER 2019-09-21 06:58 | Day surgery (SDC) | payer OTHER ==
[~2019-09-21 06:58] MED LIST: KETOROLAC TROMETHAMINE 0.45% 4 DROP/0.4 ML DROPERETTE OD PRN
[2019-09-21] MEDS ORDERED: MIDAZOLAM 2 MG/2 ML INJ ONE (07:03)
[2019-09-21] MEDS ORDERED: ONDANSETRON HCL INJ/PF 4 MG/2 ML SDV ONE (07:03)
[2019-09-21] MEDS ORDERED: FENTANYL CITRATE INJ/PF 100 MCG/2 ML AMPUL ONE ×2 (07:04→09:02)
[2019-09-21] MEDS: TETRACAINE HCL 0.5% OPH SOLN 4 ML OD PRN ×4 (07:45→08:21)
[2019-09-21] MEDS: CYCLOPENTOLATE 0.2%/PHENYLEPHRINE 1% OPH SOLN 2 ML OD PRN ×3 (07:45→08:05)
[2019-09-21] MEDS: TROPICAMIDE 1% OPH SOLN 15 ML OD PRN ×3 (07:45→08:05)
[2019-09-21] MEDS: BESIFLOXACIN HCL 0.6% OPH SUSP 5 ML BOTTLE OD PRN ×4 (07:45→08:54)
[2019-09-21] MEDS: CHONDR SU A NA/HYALUR INTRAOC KIT (SURGICARE) ONE ×2 (08:43)
[2019-09-21] MEDS: LIDOCAINE 1%/PHENYLEPHRINE 1.5% 0.8 ML SYRINGE ONE ×2 (08:43)
[2019-09-21] MEDS: EPINEPHRINE INJ/PF 1 MG/1 ML AMPULE ONE ×2 (08:43)
[2019-09-21] MEDS: DORZOLAMIDE HCL 2%/TIMOLOL MALEAT 0.5% OPH SOLN 10 ML OD PRN ×2 (08:54)
[2019-09-21] MEDS ORDERED: METOPROLOL TARTRATE PF/INJ 5 MG/5 ML SDV IV ONE (11:31)
--- NOTE | 2019-09-21 12:48 | Operative Report ---
Operative Report-[facility] Operative Report: DATE OF SURGERY: 09/21/2019 PREOPERATIVE DIAGNOSIS: Cataract, right eye POSTOPERATIVE DIAGNOSIS: Cataract, right eye OPERATION: Cataract extraction with insertion of an IOL of the right eye. Intraocular Lens Model: [22.5 sn60wf] he underwent surgery for difficulty reading SURGEON: Pradeep Srivastava MD ANESTHESIA: Topical PROCEDURE: After obtaining appropriate consent, the patient's right eye was prepped and draped in a sterile fashion as well as the surgeon in the sterile manner and cataract surgery was started. First a paracentesis blade was used to make a side-port incision. Viscoelastic was used to inflate the anterior chamber. Next a 2.4 mm incision was made with a 2.4 mm blade, clear corneal temporarily. A continuous capsulorrhexis was made using a cystotome and Utrata forceps. Following this hydrodissection was carried out to make the maria elena fully loose and mobile and it was rotated. Following this, a divide and conquer technique was used to phacoemulsify the maria elena. The remaining cortex was removed with an irrigation/aspiration. Provisc was instilled into the capsular bag to inflate the bag. The intraocular lens was placed. The remaining viscoelastic material was removed with irrigation/aspiration. Following this, the incision was found to be watertight. Besivance and Cosopt was instilled into the eye and a protective shield was placed over the eye. The patient was reurned to the postoperative recovery in a stable condition.
== END 2019-09-21 09:31 | disposition home or self-care (01) ==
LOC: SC 06:58
PROVIDERS: ATTEND Internal Medicine
DX: H25.11 Age-related nuclear cataract, right eye (principal); E78.00 Pure hypercholesterolemia, unspecified; Z88.2 Allergy status to sulfonamides; Z87.891 Personal history of nicotine dependence; J43.9 Emphysema, unspecified; J45.909 Unspecified asthma, uncomplicated; I25.2 Old myocardial infarction; I25.10 Atherosclerotic heart disease of native coronary artery without angina pectoris; I69.354 Hemiplegia and hemiparesis following cerebral infarction affecting left non-dominant side; I10 Essential (primary) hypertension; Z79.02 Long term (current) use of antithrombotics/antiplatelets; Z79.899 Other long term (current) drug therapy
CPT/HCPCS: 66984; V2632; J2250; J3490 ×4; J0171; J3010; J2405

== ENCOUNTER 2019-10-12 08:28 | Day surgery (SDC) | payer OTHER ==
[~2019-10-12 08:28] MED LIST changes: -KETOROLAC TROMETHAMINE 0.45% 4 DROP/0.4 ML DROPERETTE OD PRN; +KETOROLAC TROMETHAMINE 0.45% 4 DROP/0.4 ML DROPERETTE OS PRN
[2019-10-12] MEDS ORDERED: MIDAZOLAM 2 MG/2 ML INJ ONE (09:19)
[2019-10-12] MEDS ORDERED: FENTANYL CITRATE INJ/PF 100 MCG/2 ML AMPUL ONE (09:19)
[2019-10-12] MEDS ORDERED: ONDANSETRON HCL INJ/PF 4 MG/2 ML SDV ONE (09:19)
[2019-10-12] MEDS: CYCLOPENTOLATE 0.2%/PHENYLEPHRINE 1% OPH SOLN 2 ML OS PRN ×3 (09:40→10:00)
[2019-10-12] MEDS: BESIFLOXACIN HCL 0.6% OPH SUSP 5 ML BOTTLE OS PRN ×4 (09:40→10:30)
[2019-10-12] MEDS: TROPICAMIDE 1% OPH SOLN 15 ML OS PRN ×3 (09:40→10:00)
[2019-10-12] MEDS: TETRACAINE HCL 0.5% OPH SOLN 4 ML OS PRN ×4 (09:41→10:14)
[2019-10-12] MEDS: LIDOCAINE 1%/PHENYLEPHRINE 1.5% 0.8 ML SYRINGE ONE ×2 (10:21)
[2019-10-12] MEDS: EPINEPHRINE INJ/PF 1 MG/1 ML AMPULE ONE ×2 (10:21)
[2019-10-12] MEDS: CHONDR SU A NA/HYALUR INTRAOC KIT (SURGICARE) ONE ×2 (10:21)
[2019-10-12] MEDS: PREDNISOLONE ACETATE 1% OPH SUSP 5 ML OS PRN ×2 (10:30)
[2019-10-12] MEDS: DORZOLAMIDE HCL 2%/TIMOLOL MALEAT 0.5% OPH SOLN 10 ML OS PRN ×2 (10:30)
[2019-10-12] MEDS ORDERED: METOPROLOL TARTRATE PF/INJ 5 MG/5 ML SDV IV ONE (10:43)
--- NOTE | 2019-10-12 13:00 | Operative Report ---
Operative Report-[facility] Operative Report: DATE OF SURGERY: 10/12/2019 PREOPERATIVE DIAGNOSIS: Cataracts, left eye POSTOPERATIVE DIAGNOSIS: Cataract, left eye OPERATION: Cataract extraction with insertion of an IOL of the left eye. Intraocular Lens Model: [21.0 sn60wf] Underwent surgery for difficulty reading SURGEON: Pradeep Srivastava MD ANESTHESIA: Topical PROCEDURE: After obtaining appropriate consent, the patient's left eye was prepped and draped in a sterile fashion as well as the surgeon in the sterile manner and cataract surgery was started. First a paracentesis blade was used to make a side-port incision. Viscoelastic was used to inflate the anterior chamber. Next a 2.4 mm incision was made with a 2.4 mm blade, clear corneal temporarily. A continuous capsulorrhexis was made using a cystotome and Utrata forceps. Following this hydrodissection was carried out to make the lens fully loose and mobile and it was rotated 90 degrees. Following this, a divide and conquer technique was used to phacoemulsify the lens. The remaining cortex was removed with an irrigation/aspiration. Provisc was instilled into the capsular bag to inflate the bag.The intraocular lens was placed. The remaining viscoelastic material was removed with irrigation/aspiration. Following this, the incision was found to be watertight. Besivance and Cosopt was instilled into the eye and a protective shield was placed over the eye. The patient was returned to the postoperative recovery in a stable condition.
== END 2019-10-12 11:08 | disposition home or self-care (01) ==
LOC: SC 08:28
PROVIDERS: ATTEND Internal Medicine
DX: H25.12 Age-related nuclear cataract, left eye (principal); Z96.1 Presence of intraocular lens; I25.10 Atherosclerotic heart disease of native coronary artery without angina pectoris; Z86.73 Personal history of transient ischemic attack (TIA), and cerebral infarction without residual deficits; I10 Essential (primary) hypertension; Z79.02 Long term (current) use of antithrombotics/antiplatelets; Z99.81 Dependence on supplemental oxygen; J43.9 Emphysema, unspecified; Z87.891 Personal history of nicotine dependence; E07.9 Disorder of thyroid, unspecified
CPT/HCPCS: 66984; V2632; J2250; J3490 ×4; J0171; J3010; J2405; 142